=== PATIENT | female | born 1950 | race Caucasian/White ===

== ENCOUNTER → 2020-10-23 13:42 | Outpatient (BNVA) | payer MEDICARE, SELFPAY | PROVIDERS: PCP Internal Medicine; Visit Provider Specialist | DX: R20.0 Anesthesia of skin (principal); M25.531 Pain in right wrist; R29.898 Other symptoms and signs involving the musculoskeletal system | CPT/HCPCS: 95907; 95908 ==

== ENCOUNTER 2021-01-10 14:45 | Outpatient (CLI) | payer MEDICARE, SELFPAY ==
--- NOTE | 2021-01-10 15:21 | XR_ITS ---
WS: [id number] HAND RIGHT TECHNIQUE: 3 views of the right hand CLINICAL INFORMATION: PAIN AND SWELLING COMPARISON: None. FINDINGS: Normal metacarpals. Normal MCP joint. Metacarpal heads are normal in appearance. Mild narrowing PIP a nd DIP joints. No evidence of acute fracture or dislocation. Mild soft tissue edema. Radiocarpal joint: Mild narrowing Carpal bones: Mild degenerative arthritis first CMC and STT XR/XR hand RT min 3V* [id number] IMPRESSION: 1. Mild soft tissue edema. No acute fractures. 2. Mild degenerative arthritis as described above.
--- NOTE | 2021-01-10 15:22 | XR_ITS ---
WS: [id number] WRIST RIGHT TECHNIQUE: 3 views of the right wrist CLINICAL INFORMATION: PAIN AND SWELLING COMPARISON: None. FINDINGS: Distal radius and ulna are normal. Mild soft tissue edema about the wrist. Normal scaphoid and lunate . Normal scapholunate interval. No acute fractures. XR/XR wrist RT min 3V* [id number] IMPRESSION: Mild soft tissue edema. No acute fractures.
== END 2021-01-10 14:46 | disposition home or self-care (01) ==
PROVIDERS: PCP Internal Medicine; Visit Provider Internal Medicine
DX: M79.89 Other specified soft tissue disorders (principal); R60.0 Localized edema; M19.041 Primary osteoarthritis, right hand
CPT/HCPCS: 73110; 73130

== ENCOUNTER 2021-09-06 14:52 | Outpatient (CLI) | payer MEDICARE, SELFPAY ==
--- NOTE | 2021-09-06 15:08 | XR_ITS ---
WS: [id number] LEFT FOOT: 3 VIEW(S) TECHNIQUE: AP, oblique and lateral. HISTORY: FOOT PAIN, LEFT COMPARISON: None available. No acute fracture or dislocation. Normal tarsal/metatarsal alignment. No soft tissue abnormality or bone destruction. Small calcaneal spur. XR/XR foot LT min 3V* [id number] IMPRESSION: 1. No fracture or bone destruction. 2. Small calcaneal spur.
== END 2021-09-06 14:53 | disposition home or self-care (01) ==
PROVIDERS: PCP Internal Medicine; Visit Provider Nurse Practitioner Family
DX: M77.32 Calcaneal spur, left foot (principal)
CPT/HCPCS: 73630

== ENCOUNTER 2021-09-11 12:07 | Emergency (ER) | payer MEDICARE, SELFPAY ==
[2021-09-11] VITALS (10 sets, daily range): BP systolic 98–127; BP diastolic 45–102; PULSE 49–64; RESP 12–19; O2SAT 92–98; BMI 42.0
--- NOTE | 2021-09-11 12:10 | XRR_ITS ---
PROCEDURE INFORMATION: Exam: XR Chest Exam date and time: 09/11/2021 12:10 PM Age: 70 years old Clinical indication: Pain; Angina pectoris; Additional info: Chest pain TECHNIQUE: Imaging protocol: XR of the chest. Views: 1 view. COMPARISON: CR Abdomen 1 view [id number] 06/02/2017 4:02 PM FINDINGS: Lungs: Mildly hyperinflated lungs. No consolidation. Pleural spaces: Unremarkable. No pleural effusion. No pneumothorax. Heart/Mediastinum: Mild cardiomegaly. Bones/joints: Visualized osseous structures are intact. XR/XR chest 1V portable [id number] IMPRESSION: Mild cardiomegaly.
--- NOTE | 2021-09-11 12:10 | ECG_ITS ---
[facility] Test Date: 2021-09-11 Pat Name: Nelsy Valle Department: Room: Gender: Female Processing Associate: : 1950 Requested By: Caden Parrish Order Number: [id number] So MD: Jeffery Downs M.D. Measurements Intervals [place] Rate: 52 P: -19 NV: 150 QRS: -35 QRSD: 97 T: 133 QT: 390 QTc: 364 Interpretive Statements SINUS BRADYCARDIA LOW QRS VOLTAGE IN PRECORDIAL LEADS [QRS DEFLECTION < 1.0 mV IN CHEST LEADS] PATTERN CONSISTENT WITH PULMONARY DISEASE ST depressions in the high lateral leads with ST of ischemia INFERIOR MYOCARDIAL INFARCTION , POSSIBLY ACUTE [40+ ms Q WAVE AND/OR ST/T ABNORMALITY IN II/aVF] Diffuse nonspecific T wave changes ACUTE [place] No previous ECG available for comparison Electronically Signed On 09-11-2021 22:02:02 REAL ESTATE DIRECTOR by Jeffery Downs M.D. [id number]
--- NOTE | 2021-09-11 12:13 | ED_ITS ---
HPI - Chest Pain General: Chief Complaint: Chest Pain Stated Complaint: CP, FOOT DISCOLORATION Time Seen by Provider: 09/11/21 12:13 History of Present Illness: HPI narrative: Ms. Valle is a 70-year-old lady with history of COPD and hyperlipidemia who presents the emergency department due to chest pain. She was seen by Dr. Bunch this morning and referred to the emergency department for further evaluation. She reports being at her baseline health last night and does not have a history of chest pain. Earlier this morning she had chest pain which she describes as a gas type feeling of moderate intensity. Associated with mild nausea and vomiting. Some associated shortness of breath. Overall the course of symptoms has persisted. No known specific exacerbating relieving factors identified. Of note and recent history approximately 3 weeks ago she noticed discoloration of her left toes and increased pain. She presented to [place] and at that point was told that she has gout and started on colchicine. She endorses that that has made her st omach upset. Additionally she is on antibiotics for diverticulitis. Review of Systems General: Reports: 10 or more systems reviewed and unremarkable except in HPI and below Physical Exam Narrative: EXAM NARRATIVE: GENERAL/CONSTITUTIONAL -somewhat ill-appearing. Obese Eyes - PERRL, no conjunctival injection ENMT - Atraumatic external nose and ears. NECK - supple. trachea midline CARDIOVASCULAR - regular rate and rhythm. No significant peripheral edema. Unable to palpate DP or PT, discoloration with purpling of the left first through fifth toes. RESPIRATORY - clear to auscultation bilaterally. No retractions or accessory muscle use. ABDOMEN/GI - Nontender/Nondistended. MSK - Extremities without obvious deformity or tenderness to palpation SKIN - Warm, Dry NEURO - alert and appropriately oriented. Moves all extremities equally. Course ED course: - Patient was seen and evaluated by me at bedside - Patient placed on cardiac monitors, IV access obtained - Initial evaluation notable for exam as noted above. Based on initial EKG patient is STEMI activated. STEMI activation order set ordered. Cardiology Dr. Hirsch reviewed twelve-lead EKG and would like to see labs prior to decision regarding High School Coordinator. - Labs notable for leukocytosis, likely mild hemoconcentration. Metabolic panel without acute electrolyte abnormality, bicarb decreased, anion gap elevated. There is elevation of the AST of unclear etiology. CK and troponin markedly elevated - Upon obtaining results of troponin I again discussed the case with Dr. Hirsch. He came to evaluate the patient and recommedned treatment for NSTEMI with heparin drip. - Imaging notable for no acute finding on chest x-ray to explain patient's pain. Ultrasound arterial study reveals at least moderate peripheral arterial disease in the left leg and mild in the right - Upon serial reexamination after treatment the patient was similar - Based on patient history, evaluation, labs, and imaging as interpreted the most likely cause of the patient's condition is NSTEMI, peripheral arterial disease with evidence of tissue ischemia. - I discussed the results of ED evaluation with the patient. She expressed a desire to leave. I explained multiple times that I believe that medically this is a bad decision. The patient's primary motivation for wanting to leave is financial. I discussed that I would have case management and social work come and speak with her and potentially a plan could be established however she continues to express desire to leave. The patient is oriented to person, place, and time, has the capacity to make decisions regarding the medical care offered. The patient speaks coherently and exhibits no evidence of having an altered level of consciousness. They respond knowingly to questions about recommended treatment and alternate treatments including no further testing or treatment; p articipate in diagnostic and treatment decisions by means of rational thought processes; and understand the items of minimum basic medical treatment information with respect to that treatment (the nature and seriousness of the illness, the nature of the treatment, the probable degree and duration of any benefits and risks of any medical intervention that is being recommended, and the consequences of lack of treatment, and the nature, risks, and benefits of any reasonable alternatives). - Given the patient his high risk for various complications I will give her prescriptions despite her leaving AGAINST MEDICAL ADVICE. I will message case management to aid with outpatient follow-up. - The patient understands that she is welcome to return to the emergency department at any time for any reason. Vital Signs: Vital signs: Vital Signs Pulse Rate 64 09/11/21 14:59 Respiratory Rate 16 09/11/21 14:59 Blood Pressure 110/62 09/11/21 14:59 Pulse Oximetry 94 09/11/21 13:46 MDM - Chest Pain Medical Records: Attestation: I reviewed the patient's medical records. Lab Data: Attestation: I reviewed the patient's lab results. Labs: Lab Results 09/11/21 09/11/21 09/11/21 12:10 12:10 12:10 WBC RBC Hgb Hct MCV MCH MCHC RDW Plt Count MPV Neut % (Auto) Lymph % (Auto) Ceiba % (Auto) Eos % (Auto) Baso % (Auto) Neut # (Auto) Lymph # (Auto) Ceiba # (Auto) Eos # (Auto) Baso # (Auto) Nucleated RBC % (a uto) Nucleated RBCs # PT 13.20 SECONDS SEC ONDS (12.1-14.9) INR 0.97 (0.8-1.2) APTT 27.0 SECONDS SECO NDS (23.9-36.7) Sodium 139 mmol/L mmol/L (136-145) Potassium 4.5 mmol/L mmol/L (3.5-5.1) Chloride 102 mmol/L mmol/L (98-107) Carbon Dioxide 18 mmol/L L mmol/ L (22-29) Anion Gap 23.5 H (5-19) BUN 9 mg/dL mg/dL (8-23) Creatinine 0.8 mg/dL mg/dL (0.5-0.9) GFR Calculation Not Reportable Glucose 100 mg/dL mg/dL (65-115) Calculated Osmolal ity 287 mOsm/kg mOsm/ kg (285-295) Calcium 9.3 mg/dL mg/dL (8.5-10.5) Total Bilirubin 0.2 mg/dL mg/dL (0.15-1.2) AST 97 U/L H U/L (0-32) ALT 18 U/L U/L (0-33) Alkaline Phosphata se 89 IU/L IU/L (35-105) Creatine Kinase 1279 U/L H* U/L (26-192) CK-MB (CK-2) 158.5 ng/mL H ng/ mL (0-5.34) CK-MB (CK-2) Rel I ndex 12.3 % H % (0.0-10.4) Troponin T Baselin e 1160 ng/L H* ng/L (0-10) Total Protein 6.3 g/dL L g/dL (6.6-8.7) Albumin 4.0 g/dL g/dL (3.5-5.2) Globulin 2.3 g/dL g/dL (1.3-4.6) 09/11/21 12:25 WBC 16.6 10^3/uL H 10 ^3/uL (4.0-10.0) RBC 4.87 10^6/uL 10^6 /uL (4.1-5.3) Hgb 15.8 g/dL H g/dL (11.5-15.3) Hct 49.1 % H % (37.0-47.0) MCV 100.8 fl H fl (81-99) MCH 32.4 pg pg (28.0-34.0) MCHC 32.2 g/dL g/dL (30.0-36.0) RDW 13.2 % % (12.1-15.1) Plt Count 304 10^3/cmm 10^3 /cmm (130-400) MPV 9.5 fL fL (7.4-10.4) Neut % (Auto) 77.5 % % Lymph % (Auto) 15.4 % % Ceiba % (Auto) 6.2 % % Eos % (Auto) 0.4 % % Baso % (Auto) 0.2 % % Neut # (Auto) 12.85 10^3/uL H 1 0^3/uL (1.8-7.7) Lymph # (Auto) 2.6 10^3/uL 10^3/ uL (0.8-4.8) Ceiba # (Auto) 1.0 10^3/uL H 10^ 3/uL (0.2-0.9) Eos # (Auto) 0.1 10^3/uL 10^3/ uL (0.0-0.8) Baso # (Auto) 0.0 10^3/uL 10^3/ uL (0.0-0.1) Nucleated RBC % (a uto) 0 % % Nucleated RBCs # 0.0 /100WBC /100W BC PT INR APTT Sodium Potassium Chloride Carbon Dioxide Anion Gap BUN Creatinine GFR Calculation Glucose Calculated Osmolal ity Calcium Total Bilirubin AST ALT Alkaline Phosphata se Creatine Kinase CK-MB (CK-2) CK-MB (CK-2) Rel I ndex Troponin T Baselin e Total Protein Albumin Globulin EKG Data^: EKG 1: Attestation: I personally reviewed and interpreted this EKG as follows: EKG interpretation date: 09/11/21 EKG interpretation time: 12:09 Ischemic changes: acute STEMI Interpretation: Twelve-lead EKG shows a regular rhythm and rate of 52. DC interval 150, QRS duration 97, QTc 369. Left axis deviation. Interpretation: ST elevation in lead III and aVF with reciprocal changes in lead I and aVL. STEMI activation ordered. EKG 2: Attestation: I personally reviewed and interpreted this EKG as follows: EKG interpretation date: 09/11/21 EKG interpretation time: 13:05 Interpretation: Twelve-lead EKG shows a regular rhythm at a rate of 51. DC interval 141, QRS duration 92, QTc 396. Left axis deviation. Interpretation: Sinus rhythm. Bradycardia. Nonspecific ST segment abnormalities no longer meeting STEMI criteria. Critical Care Time Critical Care Time: Critical Care Time: Yes Total Critical Care Time: 35 Attestation: Due to a high probability of clinically significant, possibly life threatening deterioration, the patient required my highest level of attention and preparedness to intervene emergently and I personally spent this critical care time directly and personally managing the patient. This critical care time included obtaining a history; examining the patient; pulse oximetry; ordering and review of laboratory and imaging studies; arranging urgent treatment with development of a management plan; evaluation of patient's response to treatment; frequent reassessment; and, discussions with other providers as applicable. It was exclusive of separately billable procedures. Discharge Plan Discharge Patient Disposition: Left Against Medical Advice Clinical Impression: Chest pain, Acute non-ST elevation myocardial infarction (NSTEMI), Leukocytosis, Peripheral arterial disease, Arterial insufficiency of lower extremity, Elevated CK Condition: Stable Prescriptions: New aspirin 325 mg tablet,delayed release (DR/EC) 325 mg PO DAILY Qty: 30 RF: 0 Plavix 75 mg tablet 75 mg PO DAILY Qty: 30 RF: 0 nitroglycerin 0.4 mg tablet, sublingual 0.4 mg sublingual Q5M PRN (Reason: chest pain) Qty: 30 RF: 0 No Action diazepam [Valium] 5 mg tablet 5 mg PO BID PRN (Reason: Anxiety) RF: 0 cephalexin 500 mg capsule 500 mg PO TID RF: 0 Referrals: Minda Bunch MD [Primary Care Provider] - Discharge Diet: Usual diet Discharge Activity: Resume usual activity Patient Instructions: Heart Attack (DC), Peripheral Artery Disease (ED) Activity Restrictions/Additional Instructions: Thank you for visiting the emergency department. You were seen and evaluated f or chest pain. You were found to have a heart attack, evidence of muscle breakdown leading to elevated CK which can cause kidney damage or kidney failure, and peripheral arterial disease likely resulting in ischemia in your toes. You are choosing to leave AGAINST MEDICAL ADVICE. I believe that this is a bad medical decision. You are at increased risk of , permanent debility, renal failure, severe morbidity, gangrene, or other complications because you are not staying in the hospital. Please follow-up with your primary care provider. Return to the emergency department for any reason at any time that you are concerned about and feel needs emergency department evaluation. Leaving AGAINST MEDICAL ADVICE does not mean that you cannot return to the emergency department. Coding Level of Care Code ED Campaign Developer for Jayaln Cordova
--- NOTE | 2021-09-11 12:24 | USCV_ITS ---
Nelsy Valle Age: 70 Gender: F : 1950 Exam Date: 09/11/2021 13:14 Ordering Phys: Russell Boo MD Technologist: Taurus Montiel Exam Location: [facility] [place] Indication: LEFT TOES ISCHEMIA, BILATERAL COLD FEET Risk Factors: Previous Vascular Surgery: RIGHT LEFT BP: / BP: 112.0/ 47.00 0 Waveform Velocity (cm/s) Velocity (cm/s) Waveform Triphasic 157.3 Iliac Prox 62.7 Triphasic Triphasic 139.1 Iliac Mid 60.9 Triphasic Triphasic Iliac Distal Triphasic 135.8 70.5 Triphasic 87.0 LEATHER PRODUCTION MACHINE OPERATOR 57.8 Triphasic Biphasic 87.0 SFA Prox 36.7 Monophasic Biphasic 68.4 SFA Mid 30.8 Monophasic Biphasic 74.6 SFA Dist 23.0 Monophasic Biphasic 38.5 POP 17.1 Monophasic Biphasic 55.5 GRAPHIC DESIGN MANAGER 29.2 Monophasic Monophasic DPA 13.1 Monophasic 1.0 JEFFREY 0.7 FINDINGS Resting JEFFREY on the right side of 1.0 Diminished resting JEFFREY on the left side of 0.7 Abnormal artery Doppler waveforms in the left superficial femoral, popliteal and infrapopliteal vessels. CONCLUSIONS Patient has a history of at least moderate peripheral artery disease on the left side involving the femoral popliteal and infrapopliteal vessels. Normal resting JEFFREY with abnormal artery Doppler waveforms, suggestive of at least mild PAD on the right side No similar previous studies are available for comparison Dr Jeffery Downs MD [facility] (Electronically Signed) Final Date: 11 September 2021 16:12 S
[2021-09-11] MEDS: clopidogrel 300 mg Tablet 600 MG PO (12:28)
[2021-09-11] MEDS: sodium chloride 0.9% 1,000 ML 999 ML IV (12:28)
[2021-09-11] MEDS: heparin 5,000 unit/mL INJ 1 mL 4000 UNIT IVP (12:28)
[2021-09-11 12:40] LABS: INR 0.97 (0.8-1.2)
[2021-09-11 12:43] LABS: Alanine Aminotransferase 18 U/L (0-33); Alkaline Phosphatase 89 IU/L (35-105); Anion Gap 23.5 (5-19); Aspartate Amino Transferase 97 U/L (0-32); Blood Urea Nitrogen 9 mg/dL (8-23); Calcium 9.3 mg/dL (8.5-10.5); Carbon Dioxide 18 mmol/L (22-29); Chloride 102 mmol/L (98-107); Globulin 2.3 g/dL (1.3-4.6); Glucose 100 mg/dL (65-115); Osmolality Calculated 287 mOsm/kg (285-295); Potassium 4.5 mmol/L (3.5-5.1); Sodium 139 mmol/L (136-145); Total Bilirubin 0.2 mg/dL (0.15-1.2); Total Protein 6.3 g/dL (6.6-8.7)
[2021-09-11 12:48] LABS: Basophils % 0.2 %; Eosinophils # 0.1 10^3/uL (0.0-0.8); Eosinophils % 0.4 %; Hematocrit 49.1 % (37.0-47.0); Hemoglobin 15.8 g/dL (11.5-15.3); Lymphocytes # 2.6 10^3/uL (0.8-4.8); Lymphocytes % 15.4 %; Mean Corpuscular HGB Conc 32.2 g/dL (30.0-36.0); Mean Corpuscular Hemoglobin 32.4 pg (28.0-34.0); Mean Corpuscular Volume 100.8 fl (81-99); Mean Platelet Volume 9.5 fL (7.4-10.4); Monocytes % 6.2 %; Neutrophils # 12.85 10^3/uL (1.8-7.7); Neutrophils % 77.5 %; Nucleated Red Blood Cells % 0 %; Platelet Count 304 10^3/cmm (130-400); Red Blood Count 4.87 10^6/uL (4.1-5.3); Red Cell Distribution Width 13.2 % (12.1-15.1); White Blood Count 16.6 10^3/uL (4.0-10.0)
[2021-09-11] MEDS: fentaNYL 50 mcg/mL INJ 2mL IVP (12:49)
[2021-09-11 12:50] LABS: Troponin(5th) Baseline 1160 ng/L (0-10)
[2021-09-11 12:51] LABS: Creatine Phosphokinase 1279 U/L (26-192)
--- NOTE | 2021-09-11 12:53 | ECG_ITS ---
[facility] Test Date: 2021-09-11 Pat Name: Nelsy Valle Department: Room: Gender: Female Occupational Health And Safety Manager: : 1950 Requested By: Russell Boo Order Number: [id number] So MD: Jeffery Downs M.D. Measurements Intervals [place] Rate: 51 P: -16 [place]: 141 QRS: -36 QRSD: 92 T: -60 QT: 420 QTc: 387 Interpretive Statements SINUS BRADYCARDIA LEFT AXIS DEVIATION [QRS AXIS < -30] LOW QRS VOLTAGE IN PRECORDIAL LEADS [QRS DEFLECTION < 1.0 mV IN CHEST LEADS] POSSIBLE ANTERIOR MYOCARDIAL INFARCTION , OF INDETERMINATE AGE [30 ms Q WAVE IN V3/V4, OR R < 0.2 mV IN V4] POSSIBLE INFERIOR MYOCARDIAL INFARCTION , OF INDETERMINATE AGE [30 ms Q WAVE IN II/aVF] INTERPRETATION BASED ON A DEFAULT AGE OF 40 YEARS Compared to ECG 09/11/2021 12:09:12 Left-axis deviation now present Myocardial infarct finding still present Electronically Signed On 09-11-2021 22:02:43 MACHINE SKIVER by Jeffery Downs M.D. [id number] tiff
[2021-09-11 13:29] LABS: CKMB 158.5 ng/mL (0-5.34); CKMB Relative Index 12.3 % (0.0-10.4)
--- NOTE | 2021-09-11 21:29 | PM.CONSULT ---
Providers/Reason For Consult Consulting Physician/Specialty*: Cardiology Reason for Consult*: Non-ST elevation DE, critical limb ischemia Primary Care Provider: Minda Bunch MD History of Present Illness History of Present Illness Nelsy Valle is a 70 year old female past medical history significant for chronic tobacco abuse quit 3 years, history of diverticulitis, obesity, peripheral arterial disease presented with off-and-on chest pain for few days and consistent for the last few hours. She was noted to have old inferior wall myocardial infarction with lateral ST depression no prior EKG to compare. Upon presentation patient was treated as per ACS protocol she was noted to have more than 1100 troponin. She was also complaining of pain in the left foot with dusky blue discoloration of toes. She does not have palpable pulses in the left foot however it appears to be warm and not cold. I saw the patient in the ER. Since she is chest pain-free and because of the fact she has non-ST elevation DE it was advised that patient should get admitted for possible left heart cath/PCI if indicated in the morning until then we will treat her with medical regimen including anticoagulation antiplatelet and statin. She also need left foot to be addressed. According the patient she would like to go home and would not like to be treated. I have detailed discussion with the patient regarding all risk benefit and alternative for the treatment. Patient has been explained in detail that since she is going through myocardial infarction it can be detrimental as it can lead to further extension of myocardial infarction, arrhythmia and worse case scenario . Patient remained adamant she appeared to be competent and would not like to be treated. This discussion took place in the presence of family member by bedside which is her daughter. I have been informed by discussion with the patient to Dr. Oshea our ER physician who will also going to talk to her as well and try to persuade her to come into the hospital. Patient has been again advised in case of worsening of chest pain or not feeling well or getting worse she can call 911 and come to ER. She can also call my clinic and I can see her there as well. We will also offer her as an outpatient left heart cath. Review of Systems General: Reports: 10 or more systems reviewed and unremarkable except in HPI and below Meds/Allergies Home Medications and Allergies Home Medications Medication Instructions Recorded Confirmed Last Taken Type diazepam 5 mg tablet 5 mg PO BID PRN 10/23/20 09/11/2109/10/21 History aspirin 325 mg PO DAILY #30 tab 09/11/21 Unknown Rx cephalexin 500 mg PO TID 09/11/21 09/11/21 09/10/21 History clopidogrel [Plavix] 75 mg PO DAILY #30 tab 09/11/21 Unknown Rx nitroglycerin 0.4 mg SUBLINGUAL Q5M PRN #30 tab 09/11/21 Unknown Rx Allergies Allergy/AdvReac Type Severity Reaction Status Date / Time acetaminophen [From Vicodin] Allergy Severe difficulty Verified 10/23/20 14:31 breathing Beef Containing Products Allergy Severe hives, Verified 10/23/20 14:31 itching and difficulty breathing erythromycin base Allergy Severe Hives Verified 10/23/20 14:32 hydrocodone [From Vicodin] Allergy Severe difficulty Verified 10/23/20 14:31 breathing Penicillins Allergy Severe anaphylaxis Verified 10/23/20 14:31 and hives Vitals/I&O/Wt Last Vital Signs Pulse 64 09/11/21 14:59 Resp 16 09/11/21 14:59 BP 110/62 09/11/21 14:59 Pulse Ox 94 09/11/21 13:46 Weight last 48 hrs Weight 230 lb Physical Exam Narrative: EXAM NARRATIVE: GENERAL: Patient is alert, awake and oriented x3. NECK: No jugular vein distension. HEENT: No cyanosis. No icterus. No pallor. HEART: Regular S1 and S2. No murmur, rub or gallop. LUNGS: Clear to auscultate bilaterally. ABDOMEN: Soft, nontender and nondistended. Positive bowel sounds. No guarding, rebound or tenderness. CENTRAL NERVOUS SYSTEM: Grossly nonfocal. EXTREMITIES: Lower extremities without edema bilaterally. Pulses not palpable, dusky blackish left foot: Toes Data EKG^: EKG 2: I personally reviewed and interpreted this EKG as follows: My Interpretation: SINUS BRADYCARDIA LOW QRS VOLTAGE IN PRECORDIAL LEADS [QRS DEFLECTION < 1.0 mV IN CHEST LEADS] PATTERN CONSISTENT WITH PULMONARY DISEASE INFERIOR MYOCARDIAL INFARCTION , POSSIBLY ACUTE [40+ ms Q WAVE AND/OR ST/T ABNORMALITY IN II/aVF] A&P Assessment and plan (1) Acute non-ST elevation myocardial infarction (NSTEMI): As defined above patient has been offered admission which she declined. She understand the consequences and left AMA. We will be available if she come back she will be requiring optimal medical regimen to be started in the hospital followed by assessment of LV function and possible left heart cath/PCI if indicated. Status: Acute (2) Peripheral arterial disease: It appeared to me that patient has moderate to severe peripheral arterial disease. Risks stratification secondary prevention and assessment with CTA with runoff along with aspirin statin advised. Patient again was offered this treatment which she declined. She left AMA. Status: Acute Consult Attestations Medical Necessity Statement: Patient left AGAINST MEDICAL ADVICE Coding Level of Care Code Acute Art Coordinator for Jaylan Cordova Diagnoses Acute non-ST elevation myocardial infarction (NSTEMI) I21.4 Peripheral arterial disease I73.9
--- NOTE | 2021-09-13 14:39 | DCPLANNER ---
manager of change had message to schedule a follow up appointment for patient with [facility]. manager of change called [facility], spoke with Negra, gave clinic patients information. manager of change was told that patients information would be printed and reviewed. Clinic will call patient with appointment information.
--- NOTE | 2021-09-25 15:45 | DCPLANNER ---
Patient had a follow up appointment scheduled with 09.18.21 with [facility] - patient did not attend appointment.
== END 2021-09-11 15:00 | disposition left against medical advice (07) ==
PROVIDERS: Family Medicine; Emergency Provider Emergency Medicine; PCP Internal Medicine
DX: I21.4 Non-ST elevation (NSTEMI) myocardial infarction (principal); D72.829 Elevated white blood cell count, unspecified; I73.9 Peripheral vascular disease, unspecified; I77.1 Stricture of artery; R79.9 Abnormal finding of blood chemistry, unspecified; Z79.82 Long term (current) use of aspirin; Z79.02 Long term (current) use of antithrombotics/antiplatelets
CPT/HCPCS: 71045; 80053; 82550; 82553; 84484; 85025; 85610; 85730; 93005; 93925; 96361; 96374; 96375; 99284; J1644; J3010; J7030

== ENCOUNTER 2021-10-01 17:15 | Inpatient (IN) | payer MEDICARE, OTHER, SELFPAY ==
[2021-10-01 17:55] VITALS: PULSE 65; O2SAT 95
[2021-10-01 19:24] LABS: Basophils # 0.1 10^3/uL (0.0-0.1); Basophils % 0.7 %; Eosinophils # 0.2 10^3/uL (0.0-0.8); Eosinophils % 2.1 %; Hematocrit 49.6 % (37.0-47.0); Hemoglobin 15.8 g/dL (11.5-15.3); Lymphocytes # 2.6 10^3/uL (0.8-4.8); Lymphocytes % 31.7 %; Mean Corpuscular HGB Conc 31.9 g/dL (30.0-36.0); Mean Corpuscular Hemoglobin 31.8 pg (28.0-34.0); Mean Corpuscular Volume 99.8 fl (81-99); Mean Platelet Volume 9.7 fL (7.4-10.4); Monocytes # 0.6 10^3/uL (0.2-0.9); Monocytes % 7.4 %; Neutrophils # 4.73 10^3/uL (1.8-7.7); Neutrophils % 57.9 %; Nucleated Red Blood Cells % 0 %; Platelet Count 303 10^3/cmm (130-400); Red Blood Count 4.97 10^6/uL (4.1-5.3); White Blood Count 8.2 10^3/uL (4.0-10.0)
[2021-10-01 19:30] VITALS: RESP 17; O2SAT 94
[2021-10-01] MEDS: HYDROmorphone 1 mg/mL INJ 1 mL IVP (19:30)
[2021-10-01 19:37] LABS: INR 1.02 (0.8-1.2)
--- NOTE | 2021-10-01 20:00 | P.HP_ITS ---
Providers/Chief Complaint Admitting Physician: Elias Hirsch MD Primary Care Provider: Minda Bunch MD Chief Complaint: CHF History of Present Illness Nelsy Valle is a 71 year old female Nelsy past medical history significant for chronic tobacco abuse quit 3 years, history of diverticulitis, obesity, peripheral arterial disease presented to emergency room couple of weeks ago with non-ST elevation PR and critical limb ischemia of left leg. At that time patient was offered admission for both peripheral angiogram and left heart cath which she declined and left AMA. She ended up in the [facility] with worsening of heart failure. She was told that she is high risk for contrast- induced nephropathy heart failure stroke and bleeding. It is the reason she opted to be hospice. As an outpatient she was treated by Dr. Morales, she somewhat got better heart failure moody but continues to have left leg pain with worsening of left toe discoloration, she then decided not to stay on hospice and would like to do everything for her. Her family is in her full sport. She discussed it with Dr. Minda Morales who discussed the situation with me it is the reason I saw this patient in my clinic today. Patient says she is in a lot of pain that she has to hold her leg all day. Her left foot appeared to be cold dusky blue and possibly developing gangrene, she still can move it and has some sensation. Since patient never had angiogram and because of the fact she has recent non-ST elevation PR, she may need coronary angiogram first for risk stratification and may require intervention if she has significant coronary artery disease, patient is high risk for bleeding stroke renal failure due to underlying comorbidities however she is pretty functional therefore we will admit her to the hospital, I will tune her up with a plan to perform left heart cath and eddy pheral angiogram at the same time most likely tomorrow. Patient and her daughter by bedside are in agreement they understand all risk benefit and alternative for the procedure and would like to proceed with it. Medications/Allergies Home Medications Medication Instructions Recorded Confirmed Last Taken Type diazepam 5 mg tablet 5 mg PO BID PRN 10/23/20 10/02/21 09/30/21 21:00 History 5 clopidogrel [Plavix] 75 mg PO DAILY #30 tab 09/11/21 10/02/21 09/30/21 21:00 Rx fentanyl 12 mcg/hr transdermal 1 patch TRANSDERMAL Q72H 10/01/21 10/02/21 10/01/21 10:00 History patch Allergies Allergy/AdvReac Type Severity Reaction Status Date / Time acetaminophen [From Vicodin] Allergy Severe difficulty Verified 10/23/20 14:31 breathing Beef Containing Products Allergy Severe hives, Verified 10/23/20 14:31 itching and difficulty breathing erythromycin base Allergy Severe Hives Verified 10/23/20 14:32 hydrocodone [From Vicodin] Allergy Severe difficulty Verified 10/23/20 14:31 breathing Penicillins Allergy Severe anaphylaxis Verified 10/23/20 14:31 and hives Iodine and Iodide Containing Allergy Unknown Unknown Verified 10/01/21 13:21 Produc shellfish derived Allergy Unknown Unknown Verified 10/01/21 13:21 PFSH Acute PFSH: Medical History (Updated 10/01/21 @ 20:10 by Elias Hirsch MD) CHF (congestive heart failure) History of PR (myocardial infarction) Family History (Updated 10/01/21 @ 13:26 by Tatiana Remy RN) Sister Cancer Colorectal CA Social History (Updated 10/01/21 @ 13:26 by Tatiana Remy RN) Smoking and tobacco status: current every day smoker (<1/2 ppd ) cigarettes Packs smoked per day: 1 Years cigarettes smoked: 55 Vitals/I&O/Wt Last Vital Signs Pulse 65 10/01/21 17:55 Resp 17 10/01/21 19:30 Pulse Ox 94 10/01/21 19:30 Physical Exam Narrative: EXAM NARRATIVE: GENERAL: Patient is alert, awake and oriented x3. NECK: No jugular vein distension. HEENT: No cyanosis. No icterus. No pallor. HEART: Regular S1 and S2. No murmur, rub or gallop. LUNGS: Clear to auscultate bilaterally. ABDOMEN: Soft, nontender and nondistended. Positive bowel sounds. No guarding, rebound or tenderness. CENTRAL NERVOUS SYSTEM: Grossly nonfocal. EXTREMITIES: Lower extremities without edema bilaterally. Pulses not palpable in the lower extremities, both dorsalis pedis and posterior tibial. Left foot cold with dusky forefeet and toes. motor and sensory are intact. Data : 10/01/21 19:10 10/01/21 19:10 A&P Assessment and plan (1) Critical limb ischemia of left lower extremity: Will admit the patient to the hospital will perform pain control she was been on anticoagulation we will keep her foot warm most likely peripheral angiogram tomorrow if creatinine is in acceptable limit Status: Acute (2) History of PR (myocardial infarction): Patient has recent non-ST elevation myocardial infarction after that she developed congestive heart failure. For risk stratification and for therapeutic purpose she required left heart cath will continue to optimize medicine. She is a candidate for DAPT she would like to have left heart cath/PCI. Status: Acute (3) CHF (congestive heart failure): New onset of heart failure currently well compensated continue current regimen. Left heart cath in the morning Status: Acute Qualifiers: Heart failure chronicity: acute on chronic Heart failure type: systolic Qualified Code(s): I50.23 - Acute on chronic systolic (congestive) heart failure Attestations Medical Necessity Statement*: Patient require admission to the hospital. She will be inpatient I am expecting her stay to cross more than 2 midnights Coding Level of Care Code New Pt Acute Crawler Dragline Operator for Jaylan Cordova Patient Type New History Comprehensive Exam Comprehensive Medical Decision Making High Complexity Diagnoses Critical limb ischemia of left lower extremity I70.222 History of PR (myocardial infarction) I25.2 CHF (congestive heart failure) I50.23 Heart failure chronicity: acute on chronic Heart failure type: systolic
[2021-10-01 20:04] LABS: Anion Gap 14.9 (5-19); Blood Urea Nitrogen 5 mg/dL (8-23); Calcium 9.3 mg/dL (8.5-10.5); Carbon Dioxide 26 mmol/L (22-29); Chloride 101 mmol/L (98-107); Glucose 100 mg/dL (65-115); Osmolality Calculated 283 mOsm/kg (285-295); Potassium 3.9 mmol/L (3.5-5.1); Sodium 138 mmol/L (136-145)
[2021-10-01 23:22] VITALS: BP 109/78; PULSE 66; RESP 13; TEMP 36.6; O2SAT 94
[2021-10-02] VITALS (15 sets, daily range): BP systolic 101–129; BP diastolic 63–90; PULSE 60–88; RESP 10–25; TEMP 35.8–36.6; O2SAT 93–98
[2021-10-02] MEDS: HYDROmorphone 1 mg/mL INJ 1 mL IVP ×2 (04:20→12:20)
[2021-10-02] MEDS: ondansetron 2 mg/ML SDV 2 mL 4 MG IVP (04:23)
[2021-10-02] MEDS: sodium chloride 0.9% 1,000 ML 50 ML IV (05:44)
--- NOTE | 2021-10-02 05:45 | PC.NURSE ---
Patient consent signed for catherization and angioplasty. Fluids infusing at 50 hour. Patient received pain medication at approximately 5am for left leg pain. Patient was npo after midnight. Will continue to monitor.
--- NOTE | 2021-10-02 06:03 | XACV_ITS ---
Exam Room: 2 Ht: 157 cm Wt: 100 kg BSA: 2.14 m2 Gender: Female : 1950 Any Known Allergies: Other Exam Priority: Routine Procedure(s): Procedure Description: Diagnostic procedure Procedure Description: PCI procedure Procedure Description: Drug Eluting Coronary Stent Procedure Description: PTCA Procedure Description: Peripheral Cath Diagnostic Procedure Procedure Description: Abdominal aortic angiography Procedure Description: Iliac arterial aortic angiography Procedure Description: Lower extremities' angiography Procedure Description: Peripheral vascular Intervention Procedure Description: PV Balloon Procedure Description: PV Stent Procedure Description: Coronary Angiography Joycelyn GERMAN; Diagnostic Cath Status: Urgent Diagnostic Findings * Left Main has no disease. * Left Anterior Descending has no disease. * Circumflex has no disease. * Proximal Right Coronary Artery: moderate 50% stenosis, JAMEE: 3 flow. * Mid Right Coronary Artery to Distal Right Coronary Artery: total occlusion, JAMEE: 0 flow. * Distal Right Coronary Artery: minimal 30% stenosis, JAMEE: 3 flow. * Ramus: severe 90% stenosis, JAMEE: 0 flow. * Third Obtuse Marginal Branch Segment: moderate 50% stenosis, JAMEE: 3 flow. * Coronary angiography shows right dominance. PCI Status: Urgent PCI Indication: NSTE - ACS Interventional Findings * Mid Right Coronary Artery to Distal Right Coronary Artery: 100% stenosis treated with a Balloon, MDT R VAISHALI 2.5X22 CAT, and MDT R VAISHALI 2.75X12 CAT. 0% residual stenosis, JAMEE: 3 flow. * Ramus: 90% stenosis treated with a AB TREK 2.50X25 RX BALLOON, MDT R VAISHALI 2.75X22 CAT, and MDT NC EUPHORA RX [id number] BALLOON. 0% residual stenosis, JAMEE: 3 flow. Lower Extremity Diagnostic Findings Peripheral angiogram: Bilateral renal artery no significant stenosis. Distal abdominal aorta has diffuse luminal irregularity with atherosclerosis without significant stenosis or aneurysm. And right common femoral artery has 40 to 50% ostial narrowing. Left common iliac artery has luminal irregularity. Left external iliac artery has significant proximal to mid stenosis. Left common femoral artery has luminal irregularity. Left SFA has high-grade mid short stenosis. Left SFA has luminal regularities. Left tibioperoneal trunk has luminal irregularity. Left anterior tibial vessel is occluded in the proximal to distal segment. Left peroneal and posterior tibial artery has luminal irregularity in the proximal to distal segment. The left distal peroneal artery has multiple stenosis in the very distal segment in the dorsum of the foot. Right external iliac right common femoral, right profundofemoral, right SFA has luminal irregularity. Right tibioperoneal trunk has luminal irregularity. Posterior tibial anterior tibial and peroneal artery on the right side is not well visualized due to insufficient injection of the contrast. Indication for procedure: Patient presented with non-ST elevation VA and limb threatening ischemia of the left foot with bluish discoloration and pain at rest. It is the reason both left heart cath and peripheral angiogram/angioplasty was performed. . Lower Extremity Interventional Findings Peripheral intervention: Through right common femoral artery approach using glide wire with the help of long destination sheath we were able to cross through left external iliac and left mid SFA stenosis. Balloon angioplasty of mid SFA and left external iliac was performed. Gradient across the left external iliac was still present more than 40 to 50 mmHg therefore it was treated with covered stent. Left anterior tibial was then crossed with the help of seeker and is command wire. Balloon angioplasty was performed. We were able to open up the vessel from proximal to mid after that it remained closed. Small perforation was observed in the left anterior tibial vessel. Since we had good two-vessel runoff noted all the way into the left foot and because of the fact we have good result in the left external iliac SFA we concluded the procedure with good two-vessel runoff all the way to the left foot.. Conclusions There is total occlusion coronary artery disease with one vessel disease. Mid Right Coronary Artery to Distal Right Coronary Artery was treated with a Balloon, Drug Eluting Stent, and Drug Eluting Stent. Ramus was treated with a Balloon, Drug Eluting Stent, and Balloon. Recommendations 1-Return to inpatient for close monitoring and routine cath care 2-Risk factor modification for secondary prevention 3-Statin and aspirin 81 mg life--long, if tolerated 4-Patient was pre-loaded with 600 mg of Plavix, continue Plavix 75mg p.o. daily for at least one year. We will assess at the end of one year again to continue if further or not 5-Continue optimal medical management 6-Follow up with Dr. Hirsch in four weeks and your primary care in 10 days. Pressures Phase:Rest AO : 155 / 81 ( 101 ) @ 5:48:00 AM 152 / 72 ( 103 ) @ 6:05:00 AM 120 / 51 ( 82 ) @ 6:12:00 AM 161 / 85 ( 116 ) @ 6:28:00 AM 135 / 79 ( 105 ) @ 6:55:00 AM 149 / 76 ( 104 ) @ 7:01:00 AM 111 / 60 ( 82 ) @ 7:22:00 AM 114 / 65 ( 87 ) @ 7:35:00 AM 110 / 66 ( 84 ) @ 7:54:00 AM 118 / 66 ( 89 ) @ 8:05:00 AM 137 / 63 ( 93 ) @ 8:06:00 AM 118 / 63 ( 86 ) @ 8:15:00 AM 130 / 59 ( 85 ) @ 8:38:00 AM Hemodynamic Data Phase:Rest AO : 155.0 / 81.0 ( 101.0 ) @ 5:48:00 AM 152.0 / 72.0 ( 103.0 ) @ 6:05:00 AM 120.0 / 51.0 ( 82.0 ) @ 6:12:00 AM 161.0 / 85.0 ( 116.0 ) @ 6:28:00 AM 135.0 / 79.0 ( 105.0 ) @ 6:55:00 AM 149.0 / 76.0 ( 104.0 ) @ 7:01:00 AM 111.0 / 60.0 ( 82.0 ) @ 7:22:00 AM 114.0 / 65.0 ( 87.0 ) @ 7:35:00 AM 110.0 / 66.0 ( 84.0 ) @ 7:54:00 AM 118.0 / 66.0 ( 89.0 ) @ 8:05:00 AM 137.0 / 63.0 ( 93.0 ) @ 8:06:00 AM 118.0 / 63.0 ( 86.0 ) @ 8:15:00 AM 130.0 / 59.0 ( 85.0 ) @ 8:38:00 AM Clinical Evaluation EBL: 5mL-10mL Procedural Details Procedure Consent Obtained. Pre-Procedure Time Out. Identified patient by full name and date of as verbalized by the patient/guarantor. Does the consent match the physician's order: Yes. Accurate & Complete Informed Consent: Yes. Inpatient/Outpatient History & Physical on Chart: Yes. If H&P is completed, is and addenduem needed: N/A. Visualize and Verify Site with Patient/Guarantor: N/A. Relevant Radiology Images available: Yes. The risks, benefits, and alternatives of sedation and/or procedure were discussed by physician. The patient agrees to continue. Procedure started. [facility] Clinical Fraility Score: 4: Vulnerable. Public Health Social Worker Indications: New Onset Angina. Chest Pain Symptom Assessment: Typical Angina Symptoms. Cardiovascular Instability: No. Correct patient, site and procedure confirmed by cath team. PERRLA. 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 Lungs clear x 5 lobes. IV Site on Arrival: 20 gauge in the right anticubital. IV Fluids: 0.9% NaCl at KVO. 100 mL infused prior to label rewinder. Pre Procedural Pulses: left dorsalis pedis was Absent. Pre Procedural Pulses: left posterior tibial was Absent. Pre Procedural Pulses: bilateral radial was 2+. Oxygen started at 2liters/min via nasal canula. bilateral groins was prepped with chloroprep then draped in the usual sterile fashion. Physician notified. Baseline sample Acquired. HR: 54 BPM. Equipment: 6F - Femoral. Cardiac Cath Pack. ACIST Manifold Kit Model BT 2000. Heparinized Saline (2 units/mL), 1000 mL bag. Kit, Micropuncture. Physician arrived. Physician scrubbed in. Immediate Pre-Procedure Time Out. Correct Patient: Yes; Correct Procedure: Yes; Correct Site: Yes; Correct Patient Position: Yes; Correct Supplies: Yes; Dried Flammable Prep: Yes; Blood Products Available: N/A. Lidocaine 1% infiltrated to the right groin. Arterial access obtained with micropuncture set. A 5 kyrgyz JL4 catheter in over wire. Pre Procedural Pulses: right dorsalis pedis was Doppled. Pre Procedural Pulses: right posterior tibial was Doppled. Multiple views taken of left coronary artery. A 5 kyrgyz JR4 catheter in over wire. Catheter removed over the standard wire. A 6 kyrgyz 3DRC catheter in over wire. Multiple views taken of right coronary artery. Catheter removed over the standard wire. Diagnostic complete, starting intervention. 6 kyrgyz XB 3 guide catheter was inserted over the wire. ACT drawn. Results 248 seconds. Therapeutic limits - pre-heparin administration 90-150 seconds and monitoring heparin during a vascular procedure >250 seconds. Patient's family updated by Merritt Tijerina RN. [employer] guidewire was advanced through the guide catheter to lesion in the Ramus. Inflation number : 1 A AB TREK 2.50X25 RX BALLOON was prepped and advanced across the Ramus , then inflated to 12 WANDA for 0:41 seconds. Balloon out. Results checked. Inflation Number : 2 A LIANG Bernal VAISHALI 2.75X22 CAT -Lot Number# [id number] was prepped and advanced across the Ramus. The stent was deployed at 12 WANDA for 0:28 seconds. Exp 2024-01-31. Stent balloon out over wire. Inflation number : 3 A LIANG MANLEY EUPHORA RX [id number] BALLOON was prepped and advanced across the Ramus , then inflated to 12 WANDA for 0:28 seconds. Inflation number: 4 The MDT NC EUPHORA RX [id number] BALLOON was reinflated across the Ramus, to 10 WANDA for 0:15 seconds. Balloon out. Results checked. Wire out. Guide catheter out. 6 kyrgyz 3DRC guide catheter was inserted over the wire. ACT drawn. Results 242 seconds. Therapeutic limits - pre-heparin administration 90-150 seconds and monitoring heparin during a vascular procedure >250 seconds. Runthrough guidewire was advanced through the guide catheter to lesion in the prox RCA. 2.75 x 12 NC Balloon inserted and unable to cross, removed. Guideliner inserted OTW to the RCA. Inflation number : 1 A AB MINI TREK 2.00X12 RX BALLOON was prepped and advanced across the Dist RCA , then inflated to 14 WANDA for 0:15 seconds. Inflation number: 2 The AB MINI TREK 2.00X12 RX BALLOON was reinflated across the Dist RCA, to 14 WANDA for 0:09 seconds. Inflation number: 3 The AB MINI TREK 2.00X12 RX BALLOON was reinflated across the Dist RCA, to 14 WANDA for 0:12 seconds. Inflation number: 1 The AB MINI TREK 2.00X12 RX BALLOON was reinflated across the Mid RCA, to 16 WANDA for 0:11 seconds. Inflation number: 2 The AB MINI TREK 2.00X12 RX BALLOON was reinflated across the Mid RCA, to 16 WANDA for 0:06 seconds. Inflation number: 3 The AB MINI TREK 2.00X12 RX BALLOON was reinflated across the Mid RCA, to 18 WANDA for 0:08 seconds. Balloon out. Results checked. Inflation Number : 4 A MDT R VAISHALI 2.5X22 CAT -Lot Number# [id number] was prepped and advanced across the Mid RCA. The stent was deployed at 14 WANDA for 0:24 seconds. Exp 2022-07-22. Inflation number: 5 The stent balloon was then re-inflated across the Mid RCA to 0 WANDA for 0:12 seconds. Stent balloon out over wire. Inflation Number : 6 A MDT R VAISHALI 2.75X12 CAT -Lot Number# [id number] was prepped and advanced across the Mid RCA. The stent was deployed at 14 WANDA for 0:22 seconds. Exp. 2024-05-29. Inflation number: 7 The stent balloon was then re-inflated across the Mid RCA to 14 WANDA for 0:09 seconds. Stent balloon out over wire. Results checked. Wire out. Guideliner out. Guide catheter out. A 5 kyrgyz Angled Pig catheter in over wire. Coronary intervention complete, starting diagnostic peripheral angiogram. Patient's family updated by Merritt Tijerina RN. Side port of sheath attached to Normal Saline flush at KVO to maintain patency. Abdominal aortogram performed in AP @ 10 mL/sec for a total of 30 mL. 360cm 0.035 Stiff Angled Glidewire in through the pigtail catheter. Pigtail Catheter removed over the glide wire. A 5F RIM catheter in over the glidewire. Glidewire advanced to the PT in the left lower extremity. RIM Catheter removed over the glide wire. Sheath upsized to a 6 Fr. Left external iliac selected and arteriogram with runoff performed @ 10 mL/sec for a total of 30 mL. Inflation number : 1 A AB ARMADA 35 OTW [id number] was prepped and advanced across the Superficial Femoral, Left , then inflated to 8 WANDA for 2:11 seconds. Balloon out over wire. ACT drawn. Results 236 seconds. Therapeutic limits - pre-heparin administration 90-150 seconds and monitoring heparin during a vascular procedure >250 seconds. Support catheter positioned in the posterior tibial to better visualize the distal vessels. Glidewire out. Hand injection of the TP trunk performed through the seeker. Hand injection of the TP trunk performed through the seeker. Hand injection of the TP trunk performed through the seeker. 300 cm 0.014 Command guidewire in through the seeker and advanced past the lesion in the Anterior Tibial. Seeker support catheter out over the Command guidewire. Inflation number : 1 A AB ARMADA 14 OTW [id number] was prepped and advanced across the Anterior Tibial, Left , then inflated to 6 WANDA for 2:24 seconds. Seeker support catheter in over the Command guidewire and advanced to the AT. Command wire out. Hand injection of the AT performed through the seeker. Seeker support catheter advanced to the TP trunk. Hand injection of the TP trunk performed through the seeker in DSA. Hand injection of the TP trunk performed through the seeker in DSA. Glidewire inserted through the Seeker Support Catheter and advanced to the AT. Glidewire out. Hand injection of the distal AT performed through the seeker. Glidewire in and advanced to the SFA, seeker out. Left common iliac selected and arteriogram with runoff performed @ 4 mL/sec for a total of 6 mL. Flexor sheath pulled back into the left common iliac to perform gradiant measurements. Inflation number : 1 A AB ARMADA 35 OTW [id number] was prepped and advanced across the External Iliac, Left , then inflated to 8 WANDA for 1:15 seconds. Inflation number: 2 The AB ARMADA 35 OTW [id number] was reinflated across the External Iliac, Left, to 8 WANDA for 1:18 seconds. Inflation number : 3 A AB ARMADA 35 OTW [id number] was prepped and advanced across the External Iliac, Left , then inflated to 8 WANDA for 1:10 seconds. Balloon out. Left common iliac selected and arteriogram with runoff performed @ 10 mL/sec for a total of 10 mL. Sheath upsized to a 7 Fr. Inflation number: 4 A [employer] Balloon Expandable Vascular Covered Stent 8mm x 58mm x 135cm was inflated and deployed at 8 WANDA for 1:30 seconds. Stent balloon out. Left external iliac selected and arteriogram with runoff performed @ 10 mL/sec for a total of 30 mL. Sheath exchanged for a short 7fr sheath. Sheath injected in Right common femoral artery and runoff performed at 10 for 30. Lidocaine 1% infiltrated to the right groin. Perclose to the right femoral failed, 7fr sheath reinserted. Sheath(s) sutured into position with 2-0 silk and sterile 4x4's and Op-site applied over the site. No oozing or signs and symptoms of hematoma noted. Arterial sheath flushed and connected to tranducer and pressure bag with heparinized saline. PERRLA. 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 No VTE prophylaxis required. Medication's Wasted: Heparin = 4000 mL. Medication's Wasted: Nitro = 49.6 mg. Medication's Wasted: Lidocaine 1% = 10 mL. Total IV fluids: 400 mL. A Suture was successful obtaining hemostatsis at the Right Femoral artery insertion site. Post-op diagnosis: Balloon angioplasty of the Ramus, Distal RCA, Mid RCA. Angioplasty of the Left SFA, Left AT, Left External Iliac with drug coated stenting of the left External Iliac. Complications: none. Estimated blood loss: 5mL-10mL. Responsiveness - Normal response to verbal stimuli; alert and oriented, PERRLA. Airway - Unaffected, no intervention required; spontaneous ventilation. Circulation: W/N/L, pulses unchanged. Nausea/Vomiting: No. Post Procedure: right dorsalis pedis pulse Doppled. Post Procedure: right posterior tibial pulse Doppled. Post Procedure: left posterior tibial pulse Doppled. Post Procedure: left dorsalis pedis pulse Doppled. Procedure completed. Patient transferred by bed to 1st floor. Vital chart was stopped. Access Site Site: Right Femoral artery Sheath Size: 6 Fr Hemostasis Method: Suture Hemostasis Success: Successful Procedure Medications Start: 7:35 AM Stop: 7:35 AM Medication: Solu-Medrol (methylprednisolone) Amount: 125 mg Route: I.V. Start: 7:35 AM Stop: 7:35 AM Medication: Benadryl Amount: 50 mg Route: I.V. Start: 7:35 AM Stop: 7:35 AM Medication: Versed Amount: 1 mg Route: I.V. Start: 7:35 AM Stop: 7:35 AM Medication: Fentanyl Amount: 50 mcg Route: I.V. Start: 7:39 AM Stop: 7:39 AM Medication: Versed Amount: 1 mg Route: I.V. Start: 7:59 AM Stop: 7:59 AM Medication: Heparin Amount: 9000 units Route: I.V. Start: 8:05 AM Stop: 8:05 AM Medication: Aggrastat 12.5 mg/250 mL Amount: 50 ml Route: I.V. bolus Start: 8:05 AM Stop: 8:05 AM Medication: Aggrastat 12.5 mg/250 mL Amount: 18 ml/hr Route: I.V. drip Start: 8:15 AM Stop: 8:15 AM Medication: Versed Amount: 1 mg Route: I.V. Start: 8:29 AM Stop: 8:29 AM Medication: Heparin Amount: 2000 units Route: I.V. Start: 8:34 AM Stop: 8:34 AM Medication: Heparin Amount: 2000 units Route: I.V. Start: 8:49 AM Stop: 8:49 AM Medication: Versed Amount: 1 mg Route: I.V. Start: 8:50 AM Stop: 8:50 AM Medication: Fentanyl Amount: 25 mcg Route: I.V. Start: 8:56 AM Stop: 8:56 AM Medication: Nitrogylcerin Amount: 400 mcg Route: I.C. Start: 9:17 AM Stop: 9:17 AM Medication: Versed Amount: 1 mg Route: I.V. Start: 9:25 AM Stop: 9:25 AM Medication: Fentanyl Amount: 25 mcg Route: I.V. Start: 9:32 AM Stop: 9:32 AM Medication: Heparin Amount: 1000 units Route: I.V. Start: 9:55 AM Stop: 9:55 AM Medication: Versed Amount: 1 mg Route: I.V. Start: 10:01 AM Stop: 10:01 AM Medication: Fentanyl Amount: 50 mcg Route: I.V. Start: 10:26 AM Stop: 10:26 AM Medication: Fentanyl Amount: 50 mcg Route: I.V. Start: 10:55 AM Stop: 10:55 AM Medication: Plavix Amount: 300 mg Route: P.O. I, the attending physician, have reviewed and verified all procedure medications. Yes, all medications given per verbal order History/Risk Factors Hypertension: No Dyslipidemia: No Peripheral Arterial Disease (PAD): Yes Myocardial Infarction (VA): Yes Obesity: Yes Renal Disease: No Tobacco Use: Current/Recent(w/in 1 year) Prior Interventions PCI: No CABG: No Valve Surgery: No Report Signatures Finalized by Elias Hirsch MD on 10/15/2021 08:36 PM
--- NOTE | 2021-10-02 06:14 | PC.NURSE ---
Shift Note Frequent safety and comfort rounds continue. Orders and/or nursing care completed as indicated. Patient monitored for response to intervention and treatment(s). Education provided includes what to expect for her cath procedure and peripheral angiogram. Patient and/or bilingual call center representative verbalizes understanding. Will continue to monitor.
--- NOTE | 2021-10-02 07:00 | USCV_ITS ---
Leonard Nelsy Age: 71 Gender: F : 1950 Exam Date: 10/02/2021 06:13 Ordering Phys: Elias Hirsch MD ([email or web address]) Technologist: Marie Gar Exam Location: [facility] [place] Indication: NSTEMI, CHF BP: 127 / 68 HR: 60 Rhythm: Sinus Technical Quality: Technically difficult study MEASUREMENTS (Male / Female) Normal Values 2D ECHO LV Diastolic Diameter PLAX 4.2 cm 4.2 - 5.9 / 3.9 - 5.3 cm LV Systolic Diameter PLAX 2.6 cm IVS Diastolic Thickness 1.2 cm 0.6 - 1.0 / 0.6 - 0.9 cm IVS Systolic Thickness 2.0 cm LVPW Diastolic Thickness 1.2 cm 0.6 - 1.0 / 0.6 - 0.9 cm LVPW Systolic Thickness 1.8 cm LVOT Diameter 2.0 cm LV Ejection Fraction 2D Teich 70.5 % LV Ejection Fraction MOD 2C 63.1 % LV Ejection Fraction 2C AL 62.4 % LA Diameter 2.6 cm LA Width 2.6 cm LA Height 4.5 cm RA Width 2.6 cm RA Height 3.8 cm Aorta at Sinotubular Diameter 2.4 cm M-MODE Aortic Annulus Diameter 2.7 cm LA Ao Ratio MM 1.1 MV E Point Septal Separation 0.6 cm DOPPLER AV Peak Velocity 141.0 cm/s LVOT Peak Velocity 58.0 cm/s AV Area Cont Eq vti 1.4 cm squared AV Area Cont Eq pk 1.3 cm squared MV Peak Velocity 113.0 cm/s MV Area PHT 3.9 cm squared Mitral E to A Ratio 0.6 MV E' Velocity 33.0 cm/s Mitral E to MV E' Ratio 9.6 Mitral E to LV E' Lateral Ratio 9.3 Mitral E to LV E' Septal Ratio 9.9 TR Peak Velocity 246.3 cm/s TR Peak Gradient 24.3 mmHg TR Mean Velocity 207.2 cm/s TR Mean Gradient 17.5 mmHg TR Velocity Time Integral 82.9 cm TV Peak E Velocity 47.0 cm/s PV Peak Velocity 89.0 cm/s RV Acceleration Time 0.1 s RV Ejection Time 0.3 s RV AcT/ET 0.3 FINDINGS Left Ventricle Normal left ventricular cavity size. Normal left ventricular systolic function. No regional wall motion abnormalities. Left ventricular ejection fraction is estimated at 65 %. Grade I/IV diastolic dysfunction (abnormal relaxation filling pattern), normal to mildly elevated filling pressures. Right Ventricle The right ventricle is normal in size and function. RVSP could not be calculated due to incomplete tricuspid regurgitation velocity profile. Right Atrium The right atrium is normal in size. Left Atrium The left atrium is normal in size. Mitral Valve Structurally normal mitral valve without significant stenosis or prolapse. There is no mitral regurgitation. Aortic Valve Moderate aortic valve calcification. No aortic valve stenosis. No aortic valve regurgitation. Tricuspid Valve Structurally normal tricuspid valve without significant stenosis or regurgitation. Pulmonic Valve Structurally normal pulmonic valve without significant stenosis. There is no pulmonic regurgitation. Pericardium Normal pericardium without effusion. Aorta Normal ascending aorta dimension. CONCLUSIONS 1-Normal left ventricular cavity size. Normal left ventricular systolic function. No regional wall motion abnormalities. Left ventricular ejection fraction is estimated at 65 %. Grade I/IV diastolic dysfunction (abnormal relaxation filling pattern), normal to mildly elevated filling pressures. 2-No significant valve abnormalities. 3-There is no pericardial effusion. 4-Right atrial pressure is around 5 mm of mercury. 5-There are no prior echocardiogram studies to compare. Elias Hirsch MD (Electronically Signed) Final Date: 02 October 2021 18:42 S
[2021-10-02] MEDS: perflutren protein-a microsphr 0.22 mg/mL SDV 3 mL IV (07:07)
--- NOTE | 2021-10-02 08:49 | PC.NURSE ---
to cardiac dental laboratory assistant at 0710.
--- NOTE | 2021-10-02 11:06 | P.HPUD_ITS ---
Surgery/Procedure H&P Update DATE OF PROCEDURE: October 02, 2021 DATE H&P PERFORMED: 10/01/21 H&P UPDATE INFORMATION: I have reviewed H&P completed within last 30 days and I have examined patient prior to procedure PREOP DIAGNOSIS: Critical limb ischemia/heart failure PATIENT REASSESSED PRIOR TO SEDATION, WITH NO CHANGE NOTED: Yes PHYSICAL EXAM: alert, oriented x 3 and clear to auscultation bilaterally AIRWAY EVAL/ANESTHESIA PLAN: ASA II and Risks, benefits & alternatives of sedation and/or procedure discussed ADDITIONAL INFORMATION: All risk benefits and alternative for the procedure including stroke major minor bleed contrast-induced nephropathy temporary permanent dialysis major minor vascular surgery urgent emergent CABG were e xplained in detail to the patient and daughter by bedside. They are all in agreement. We will proceed with it. She is a candidate for DAPT
--- NOTE | 2021-10-02 11:57 | PC.NURSE ---
patient reporting 10/10 pain in foot notified Dr bo of patients pain instructions to resume hydromorphone 1mg monitor respiratory status
[2021-10-02] MEDS: aspirin 81 mg EC Tablet PO (12:33)
[2021-10-02] MEDS: sodium chloride 0.9% 1,000 ML 100 ML IV ×2 (12:34→18:05)
[2021-10-02 13:36] LABS: Partial Thromboplastin Time 63.6 SECONDS (23.9-36.7)
--- NOTE | 2021-10-02 17:50 | PM.PN ---
Subjective Subjective: Interval history: Patient underwent left heart cath noted to have occluded mid to distal RCA with possibly was a culprit and high-grade lesion of proximal moderate to large size ramus intermedius. Both were treated with drug-eluting stents 1 in ramus and 2 in RCA. Excellent angiographic result was achieved. Peripheral angiogram was performed for critical limb ischemia of left leg and gangrenous toes, she was noted to have high-grade lesion of her external iliac mid SFA and chronically occluded left anterior tibial artery. Anterior tibial artery was treated with balloon angioplasty with reasonable good result distally it is felt through peroneal vessel mid SFA was treated with balloon angioplasty while left external iliac vessel was treated with balloon angioplasty followed by covered stent. Excellent angiographic result with good pulses were achieved in the left foot at the end of the case patient has palpable anterior and posterior tibial pulse left foot appear to be warm and started showing good color. Vitals/I&O/Wt Last Vital Signs Temp 96.6 F L 10/02/21 15:59 Pulse 88 10/02/21 15:59 Resp 20 H 10/02/21 15:59 BP 129/90 10/02/21 15:59 Pulse Ox 94 10/02/21 15:59 10/02/21 10/02/21 10/02/21 06:59 14:59 22:59 Intake Total 0 / 100 Balance 0 / 100 Weight last 48 hrs Weight 220 lb Physical Exam Narrative: EXAM NARRATIVE: GENERAL: Patient is alert, awake and oriented x3. NECK: No jugular vein distension. HEENT: No cyanosis. No icterus. No pallor. HEART: Regular S1 and S2. No murmur, rub or gallop. LUNGS: Clear to auscultate bilaterally. ABDOMEN: Soft, nontender and nondistended. Positive bowel sounds. No guarding, rebound or tenderness. CENTRAL NERVOUS SYSTEM: Grossly nonfocal. EXTREMITIES: Lower extremities without edema bilaterally. Pulses palpable in the lower extremities, both dorsalis pedis and posterior tibial of left, left toes dusky blue with reasonable motor and sensory Const: COMMON NORMALS: alert Resp: COMMON NORMALS: clear to auscultation bilaterally AUSCULTATION: clear to auscultation bilaterally Neuro: SENSORIUM/ORIENTATION: Yes alert Data : 10/01/21 19:10 10/01/21 19:10 A&P Assessment and plan (1) Critical limb ischemia of left lower extremity: As defined above patient underwent revascularization of the left leg. Continue aspirin statin Plavix. Status: Acute (2) History of [place] (myocardial infarction): Patient underwent balloon angioplasty and drug-eluting stent placement of mid to distal RCA and proximal ramus intermedius. Continue aspirin statin Plavix optimize medicine. Status: Acute (3) CHF (congestive heart failure): Appear to be stable. Continue to monitor Status: Acute Qualifiers: Heart failure type: systolic Heart failure chronicity: acute on chronic Qualified Code(s): I50.23 - Acute on chronic systolic (congestive) heart failure Attestations Medical Necessity Statement*: Patient require continuation hospitalization for work-up and care. 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
--- NOTE | 2021-10-02 19:37 | PC.NURSE ---
received from cardiac analyst microbiology lab at 1120.report received.pt is sleepy but easily awakened.right femoral arterial line intact to pressurized system.right groin drsg is dry and intact.no hematoma noted.right leg is warm to touch and with brisk capillary refill.left foot with toes bluish in color.cool to toucch.dopplerable dp pulse and palpable pt pulse.instructed pt in activity restrictions s/p femoral artery procedure.instructed pt to notify staff for any bleeding,pain,numbness...or for any concerns at all.at 1205 pt c/o severe pain to left calf area.calf is firm to touch.pulses to lle unchanged.dr bo notified and here to assess pt.he instructed me to semi-firmly wrap calf with agnes bandage.circumference measured 40.5 cm and did not change through shift.calf noted to soften to touch as shift progressed.right femoral sheath pulled at 1820,once ptt reached < 45sec.manual pressure held x 20 min.pt tolerated procedure well.no hematoma formation noted.vss.right leg remained warm to touch and with brisk capillary refill.site dressed with 2x2 guaze and secured with biocclusive drsg.instructed in activity restrictions s/p femoral artery sheath pull...and instructed to notify staff for any bleeding,pain,numbness..or for any concerns at all.pt verb understanding of instructions.no change in left foot pedal pulses noted at change of shift.pt cont to c/o discomfort in left calf but not as severe as originally..slept most of afternnoon....calf remains softer to touch
[2021-10-03] VITALS (53 sets, daily range): BP systolic 99–133; BP diastolic 62–103; PULSE 71–80; RESP 13–28; TEMP 36.7; O2SAT 90–98
--- NOTE | 2021-10-03 01:37 | PC.NURSE ---
Patient with no complaints of pain. She states that it hurts only when I move it. Pulses positive and able to hear with doppler. Will continue to monitor.
[2021-10-03 03:54] LABS: Basophils % 0.1 %; Hematocrit 38.3 % (37.0-47.0); Hemoglobin 11.6 g/dL (11.5-15.3); Lymphocytes # 1.7 10^3/uL (0.8-4.8); Lymphocytes % 11.9 %; Mean Corpuscular HGB Conc 30.3 g/dL (30.0-36.0); Mean Corpuscular Hemoglobin 31.4 pg (28.0-34.0); Mean Corpuscular Volume 103.8 fl (81-99); Mean Platelet Volume 10.3 fL (7.4-10.4); Neutrophils # 11.19 10^3/uL (1.8-7.7); Neutrophils % 80.5 %; Nucleated Red Blood Cells % 0 %; Platelet Count 273 10^3/cmm (130-400); Red Blood Count 3.69 10^6/uL (4.1-5.3); Red Cell Distribution Width 12.9 % (12.1-15.1); White Blood Count 13.9 10^3/uL (4.0-10.0)
[2021-10-03 04:22] LABS: Anion Gap 15.5 (5-19); Blood Urea Nitrogen 5 mg/dL (8-23); Calcium 8.4 mg/dL (8.5-10.5); Carbon Dioxide 23 mmol/L (22-29); Chloride 104 mmol/L (98-107); Creatinine Clr Calc Pharmacy 69.1863; Glucose 120 mg/dL (65-115); Osmolality Calculated 284 mOsm/kg (285-295); Potassium 4.5 mmol/L (3.5-5.1); Sodium 138 mmol/L (136-145)
--- NOTE | 2021-10-03 06:16 | PC.NURSE ---
Addendum entered by Candace De Anda RN 10/03/21 06:22: doppler dp pulse, palpable pt pulse. Will continue to monitor. Original Note: Patient slept most of night. No requests for pain medication. Up to commode for first time since surgery yesterday. Patient did well then requested to sit up in chair. Denies pain at this time.
--- NOTE | 2021-10-03 09:00 | P.DS_ITS ---
Discharge Providers Date of Admission: 10/01/21 17:15 Date of Discharge: October 03, 2021 Attending Provider at Admission: Elias Hirsch MD Attending Provider at Discharge: Elias Hirsch MD Primary Care Provider: Minda Bunch MD Diagnoses at Discharge Discharge Diagnosis (1) Critical limb ischemia of left lower extremity: Status: Resolved (2) History of [place] (myocardial infarction): (3) CHF (congestive heart failure): Status: Resolved Qualifiers: Heart failure chronicity: acute on chronic Heart failure type: systolic Qualified Code(s): I50.23 - Acute on chronic systolic (congestive) heart failure Reason for Visit Reason for Visit: CHF Hospital Course Hospital Course 71-year-old female who underwent left heart cath and peripheral angiogram for non-ST elevation [place] and critical limb ischemia underwent left heart cath noted to have occluded mid to distal RCA possibly was the culprit and high-grade lesion of proximal moderate to large size ramus intermedius. Both were treated with drug-eluting stents, first in ramus and second in RCA. Excellent angiographic result was achieved. Peripheral angiogram was performed for critical limb ischemia of left leg and gangrenous toes, she was noted to have high-grade lesion of her external iliac mid SFA and chronically occluded left anterior tibial artery. Anterior tibial artery was treated with balloon angioplasty with reasonable good result distally it is filled through peroneal vessel mid SFA was treated with balloon angioplasty while left external iliac vessel was treated with balloon angioplasty followed by covered stent. Excellent angiographic result with good pulses were achieved in the left foot at the end of the case patient has palpable anterior and posterior tibial pulse left foot appear to be warm and started showing good color. Over the next 2 days we optimize her medicine she did fine and being discharged home. She will be continuing on dual antiplatelet therapy including Plavix and aspirin for at least couple of years. Physical Exam Narrative: EXAM NARRATIVE: GENERAL: Patient is alert, awake and oriented x3. NECK: No jugular vein distension. HEENT: No cyanosis. No icterus. No pallor. HEART: Regular S1 and S2. No murmur, rub or gallop. LUNGS: Clear to auscultate bilaterally. ABDOMEN: Soft, nontender and nondistended. Positive bowel sounds. No guarding, rebound or tenderness. CENTRAL NERVOUS SYSTEM: Grossly nonfocal. EXTREMITIES: Lower extremities without edema bilaterally. Pulses palpable in the lower extremities, both dorsalis pedis and posterior tibial of left, left toes dusky blue with reasonable motor and sensory Const: COMMON NORMALS: alert Resp: COMMON NORMALS: clear to auscultation bilaterally AUSCULTATION: clear to auscultation bilaterally Neuro: SENSORIUM/ORIENTATION: Yes alert Discharge Data Data Completed and Pending: Completed Studies During Hospitalization Category Date Time Status CV. 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 request for service Routin e Exams 10/02/21 06:03 Taken Labs from last 24 hours 10/03/21 10/03/21 10/02/21 03:11 03:11 15:31 WBC 13.9 H RBC 3.69 L Hgb 11.6 Hct 38.3 MCV 103.8 H MCH 31.4 MCHC 30.3 RDW 12.9 Plt Count 273 MPV 10.3 Neut % (Auto) 80.5 Lymph % (Auto) 11.9 [place] % (Auto) 7.0 Eos % (Auto) 0.0 Baso % (Auto) 0.1 Neut # (Auto) 11.19 H Lymph # (Auto) 1.7 [place] # (Auto) 1.0 H Eos # (Auto) 0.0 Baso # (Auto) 0.0 Nucleated RBC % (a uto) 0 Nucleated RBCs # 0.0 APTT 27.0 D Sodium 138 Potassium 4.5 Chloride 104 Carbon Dioxide 23 Anion Gap 15.5 BUN 5 L Creatinine 0.6 GFR Calculation Not Reportable Glucose 120 H Calculated Osmolal ity 284 L Calcium 8.4 L 10/02/21 13:16 WBC RBC Hgb Hct MCV MCH MCHC RDW Plt Count MPV Neut % (Auto) Lymph % (Auto) [place] % (Auto) Eos % (Auto) Baso % (Auto) Neut # (Auto) Lymph # (Auto) [place] # (Auto) Eos # (Auto) Baso # (Auto) Nucleated RBC % (a uto) Nucleated RBCs # APTT 63.6 H Sodium Potassium Chloride Carbon Dioxide Anion Gap BUN Creatinine GFR Calculation Glucose Calculated Osmolal ity Calcium Vitals: Last Vital Signs Temp 98.0 F 10/03/21 07:30 Pulse 75 10/03/21 07:30 Resp 15 10/03/21 07:30 BP 99/66 10/03/21 07:30 Pulse Ox 90 10/03/21 07:30 Discharge Plan Discharge Patient Disposition: Home Condition: Stable Prescriptions: New aspirin 81 mg Tablet,Delayed Release (Dr/Ec) 81 mg PO DAILY Qty: 90 RF: 4 metoprolol succinate 25 mg tablet extended release 24 hr 12.5 mg PO DAILY Qty: 30 RF: 4 atorvastatin 40 mg tablet 40 mg PO DAILY Qty: 30 RF: 4 Continued diazepam [Valium] 5 mg tablet 5 mg PO BID PRN (Reason: Anxiety) RF: 0 fentanyl 12 mcg/hr patch 72 hour 1 patch transdermal Q72H RF: 0 Plavix 75 mg tablet 75 mg PO DAILY Qty: 90 RF: 4 Discharge Orders: Discharge Order (Routine); Ordered 10/03/21 Ordered By: Elias Hirsch Referrals: Minda Bunch MD [Primary Care Provider] - 10/10/21 10:30 am (You have a hospital followup with Finesse Owens (Dr. Bunch is totally booked) on October 10 at 10:30am) Elias Hirsch MD [Physician] - 11/05/21 1:15 pm Patricia March FNP [Nurse Practitioner] - 10/10/21 2:00 pm () Discharge Diet: Cardiac Patient Instructions: Metoprolol (By mouth) (Lopressor, Toprol XL), Aspirin (By mouth), Atorvastatin (By mouth) (Lipitor), Coronary Angioplasty (DC), Peripheral Vascular Stent Placement (DC), Peripheral Vascular Angioplasty (DC), Opioid S afety Activity Restrictions/Additional Instructions: Follow-up with Ms. Patricia March in 7 days. Follow-up with Dr. Minda Morales in 2 weeks. Follow-up with Dr. Hirsch in 4 weeks Discharge Attestations Time Spent in Discharge Care*: greater than 30 min Specific Discharge Activities: educating patient and educating and/or supporting family/caregiver Quality Metrics Clinical Quality Measures During this hospital stay, did patient experience: None Coding Level of Care Code Established Pt Acute Chg FW DC note Patient Type Established History Detailed Exam Detailed Medical Decision Making Moderate Complexity Diagnoses Critical limb ischemia of left lower extremity I70.222 History of [place] (myocardial infarction) I25.2 CHF (congestive heart failure) I50.23 Heart failure chronicity: acute on chronic Heart failure type: systolic
[2021-10-03] MEDS: aspirin 81 mg EC Tablet PO (09:06)
[2021-10-03] MEDS: clopidogrel 75 mg Tablet PO (09:06)
--- NOTE | 2021-10-03 11:14 | PC.NURSE ---
Discharge instructions provided to patient. Medications were faxed to pharmacy. Patient has no questions or concerns. Vital signs are stable. Incision site on right groin is clean and absent of any presence of hematoma.Awaiting arrival of family for discharge.
--- NOTE | 2021-10-03 11:55 | PC.NURSE ---
Patient left facility with daughter. VS are stable upon departure.
== END 2021-10-03 12:04 | disposition home or self-care (01) | DRG 246 ==
PROVIDERS: Admitting Provider Internal Medicine Cardiovascular Disease; PCP Internal Medicine; Visit Provider Internal Medicine Cardiovascular Disease
PROC: 027136Z Dilation of Coronary Artery, Two Arteries with Three Drug-eluting Intraluminal Devices, Percutaneous Approach (ICD-10-PCS; principal; 2021-10-02 07:00)
PROC: 027136Z Dilation of Coronary Artery, Two Arteries with Three Drug-eluting Intraluminal Devices, Percutaneous Approach (ICD-10-PCS; 2021-10-02 07:00)
PROC: 027136Z Dilation of Coronary Artery, Two Arteries with Three Drug-eluting Intraluminal Devices, Percutaneous Approach (ICD-10-PCS; 2021-10-02 07:00)
PROC: 027136Z Dilation of Coronary Artery, Two Arteries with Three Drug-eluting Intraluminal Devices, Percutaneous Approach (ICD-10-PCS; 2021-10-02 07:00)
DX: I25.10 Atherosclerotic heart disease of native coronary artery without angina pectoris (principal); I50.23 Acute on chronic systolic (congestive) heart failure; I70.262 Atherosclerosis of native arteries of extremities with gangrene, left leg; Z68.41 Body mass index [BMI] 40.0-44.9, adult; F17.210 Nicotine dependence, cigarettes, uncomplicated; E66.9 Obesity, unspecified; I25.2 Old myocardial infarction; Z79.02 Long term (current) use of antithrombotics/antiplatelets
CPT/HCPCS: 36415; 37221; 75625; 75716; 80048; 85025; 85347; 85610; 85730; 93454; C1725; C1760; C1769; C1874; C1887; C1894; C8929; C9600; C9601; J1170; J1200; J1644; J2250; J2405; J2930; J3010; J3246; J3490; J7030; Q9956; Q9967

== ENCOUNTER → 2021-10-21 15:54 | Outpatient (BNVA) | payer MEDICARE, SELFPAY | PROVIDERS: PCP Internal Medicine; Visit Provider Nurse Practitioner Family | DX: I50.9 Heart failure, unspecified (principal); I73.9 Peripheral vascular disease, unspecified | CPT/HCPCS: 80048 ==

== ENCOUNTER 2021-11-04 13:45 | Outpatient (CLI) | payer MEDICARE, SELFPAY | END 2021-11-04 13:46 | disposition home or self-care (01) | LOC: WOUND 13:46 | PROVIDERS: PCP Internal Medicine; Visit Provider Thoracic Surgery (Cardiothoracic Vascular Surgery) | DX: I77.6 Arteritis, unspecified (principal); L97.529 Non-pressure chronic ulcer of other part of left foot with unspecified severity; Z87.891 Personal history of nicotine dependence | CPT/HCPCS: 99214 ==

== ENCOUNTER 2021-11-11 14:09 | Outpatient (CLI) | payer MEDICARE, SELFPAY | END 2021-11-11 14:10 | disposition home or self-care (01) | LOC: WOUND 14:10 | PROVIDERS: PCP Internal Medicine; Visit Provider Emergency Medicine | DX: I96 Gangrene, not elsewhere classified (principal); L97.529 Non-pressure chronic ulcer of other part of left foot with unspecified severity; Z87.891 Personal history of nicotine dependence | CPT/HCPCS: 99212 ==

== ENCOUNTER 2021-11-27 13:01 | Outpatient (CLI) | payer MEDICARE, SELFPAY | END 2021-11-27 13:02 | disposition home or self-care (01) | LOC: WOUND 13:02 | PROVIDERS: PCP Internal Medicine; Visit Provider Thoracic Surgery (Cardiothoracic Vascular Surgery) | DX: I70.269 Atherosclerosis of native arteries of extremities with gangrene, unspecified extremity (principal); L97.529 Non-pressure chronic ulcer of other part of left foot with unspecified severity; Z87.891 Personal history of nicotine dependence | CPT/HCPCS: 99212 ==

== ENCOUNTER 2021-12-11 13:08 | Outpatient (CLI) | payer MEDICARE, SELFPAY | END 2021-12-11 13:09 | disposition home or self-care (01) | LOC: WOUND 13:09 | PROVIDERS: PCP Internal Medicine; Visit Provider Thoracic Surgery (Cardiothoracic Vascular Surgery) | DX: I96 Gangrene, not elsewhere classified (principal); Z87.891 Personal history of nicotine dependence; S91.105D Unspecified open wound of left lesser toe(s) without damage to nail, subsequent encounter; X58.XXXD Exposure to other specified factors, subsequent encounter | CPT/HCPCS: 99212 ==

== ENCOUNTER → 2021-12-25 13:08 | Outpatient (BNVA) | payer MEDICARE, SELFPAY | PROVIDERS: PCP Internal Medicine; Visit Provider Thoracic Surgery (Cardiothoracic Vascular Surgery) | DX: I96 Gangrene, not elsewhere classified (principal); L97.529 Non-pressure chronic ulcer of other part of left foot with unspecified severity; Z87.891 Personal history of nicotine dependence | CPT/HCPCS: 99212 ==

== ENCOUNTER → 2022-01-01 13:12 | Outpatient (BNVA) | payer MEDICARE, SELFPAY | PROVIDERS: PCP Internal Medicine; Visit Provider Thoracic Surgery (Cardiothoracic Vascular Surgery) | DX: I96 Gangrene, not elsewhere classified (principal); L97.529 Non-pressure chronic ulcer of other part of left foot with unspecified severity; Z87.891 Personal history of nicotine dependence | CPT/HCPCS: 11042; A6021 ==

== ENCOUNTER → 2022-01-08 08:22 | Outpatient (BNVA) | payer MEDICARE, SELFPAY | PROVIDERS: PCP Internal Medicine; Visit Provider Thoracic Surgery (Cardiothoracic Vascular Surgery) | DX: I96 Gangrene, not elsewhere classified (principal); L97.529 Non-pressure chronic ulcer of other part of left foot with unspecified severity; F17.210 Nicotine dependence, cigarettes, uncomplicated | CPT/HCPCS: 99212; 99213 ==

== ENCOUNTER → 2022-01-13 15:31 | Outpatient (BNVA) | payer MEDICARE, SELFPAY | PROVIDERS: PCP Internal Medicine; Visit Provider Thoracic Surgery (Cardiothoracic Vascular Surgery) | DX: I96 Gangrene, not elsewhere classified (principal); L97.528 Non-pressure chronic ulcer of other part of left foot with other specified severity; F17.210 Nicotine dependence, cigarettes, uncomplicated | CPT/HCPCS: 97597 ==

== ENCOUNTER → 2022-01-20 14:57 | Outpatient (BNVA) | payer MEDICARE, SELFPAY | PROVIDERS: PCP Internal Medicine; Visit Provider Thoracic Surgery (Cardiothoracic Vascular Surgery) | DX: I96 Gangrene, not elsewhere classified (principal); L97.521 Non-pressure chronic ulcer of other part of left foot limited to breakdown of skin; F17.210 Nicotine dependence, cigarettes, uncomplicated | CPT/HCPCS: 97597 ==

== ENCOUNTER → 2022-01-27 15:11 | Outpatient (BNVA) | payer MEDICARE, SELFPAY | PROVIDERS: PCP Internal Medicine; Visit Provider Thoracic Surgery (Cardiothoracic Vascular Surgery) | DX: I96 Gangrene, not elsewhere classified (principal); L97.511 Non-pressure chronic ulcer of other part of right foot limited to breakdown of skin; F17.210 Nicotine dependence, cigarettes, uncomplicated | CPT/HCPCS: 97597 ==

== ENCOUNTER → 2022-02-03 14:47 | Outpatient (BNVA) | payer MEDICARE, SELFPAY | PROVIDERS: PCP Internal Medicine; Visit Provider Thoracic Surgery (Cardiothoracic Vascular Surgery) | DX: I96 Gangrene, not elsewhere classified (principal); L97.511 Non-pressure chronic ulcer of other part of right foot limited to breakdown of skin; F17.210 Nicotine dependence, cigarettes, uncomplicated | CPT/HCPCS: 97597 ==

== ENCOUNTER → 2022-02-10 13:40 | Outpatient (BNVA) | payer MEDICARE, SELFPAY | PROVIDERS: PCP Internal Medicine; Visit Provider Thoracic Surgery (Cardiothoracic Vascular Surgery) | DX: I96 Gangrene, not elsewhere classified (principal); L97.521 Non-pressure chronic ulcer of other part of left foot limited to breakdown of skin | CPT/HCPCS: 97597 ==

== ENCOUNTER → 2022-02-17 14:04 | Outpatient (BNVA) | payer MEDICARE, SELFPAY | PROVIDERS: PCP Internal Medicine; Visit Provider Thoracic Surgery (Cardiothoracic Vascular Surgery) | DX: Z09 Encounter for follow-up examination after completed treatment for conditions other than malignant neoplasm (principal) | CPT/HCPCS: 99212 ==

== ENCOUNTER → 2022-03-19 10:43 | Outpatient (BNVA) | payer MEDICARE, SELFPAY | PROVIDERS: PCP Internal Medicine; Visit Provider Nurse Practitioner Family | DX: L97.521 Non-pressure chronic ulcer of other part of left foot limited to breakdown of skin (principal); F17.200 Nicotine dependence, unspecified, uncomplicated | CPT/HCPCS: 99213 ==

== ENCOUNTER → 2022-03-26 10:34 | Outpatient (BNVA) | payer MEDICARE, SELFPAY | PROVIDERS: PCP Internal Medicine; Visit Provider Thoracic Surgery (Cardiothoracic Vascular Surgery) | DX: L89.892 Pressure ulcer of other site, stage 2 (principal); I96 Gangrene, not elsewhere classified; Z09 Encounter for follow-up examination after completed treatment for conditions other than malignant neoplasm | CPT/HCPCS: 97597 ==

== ENCOUNTER 2022-03-27 16:54 | Outpatient (CLI) | payer MEDICARE, SELFPAY ==
--- NOTE | 2022-03-27 17:01 | XR_ITS ---
WS: [id number] XR foot LT min 3V* [id number] REASON FOR EXAM: I70.245 - Atherosclerosis of [place] arteries of left leg ... FINDINGS: Current images are somewhat overexposed making comparison difficult. There is concern for rarefaction and loss of cortical definition in the distal most portion of the tuft of the great toe lung compare d to the previous examination of 09/06/2021. No other interval change is noted. No other significant findings. XR/XR foot LT min 3V* [id number] IMPRESSION: Possible abnormality in the distal tuft of the distal phalanx of the great toe as above. If there is active inflammation/infection in the great toe this would be of concern for osteomyelitis. Clinical correlation to be made.
== END 2022-03-27 16:55 | disposition home or self-care (01) ==
LOC: RAD 16:58
PROVIDERS: PCP Internal Medicine; Visit Provider Thoracic Surgery (Cardiothoracic Vascular Surgery)
DX: I70.245 Atherosclerosis of native arteries of left leg with ulceration of other part of foot (principal)
CPT/HCPCS: 73630

== ENCOUNTER → 2022-04-02 10:55 | Outpatient (BNVA) | payer MEDICARE, SELFPAY | PROVIDERS: PCP Internal Medicine; Visit Provider Thoracic Surgery (Cardiothoracic Vascular Surgery) | DX: Z09 Encounter for follow-up examination after completed treatment for conditions other than malignant neoplasm (principal) | CPT/HCPCS: 99212; A6210 ==

== ENCOUNTER → 2022-04-16 10:46 | Outpatient (BNVA) | payer MEDICARE, SELFPAY | PROVIDERS: PCP Internal Medicine; Visit Provider Thoracic Surgery (Cardiothoracic Vascular Surgery) | DX: Z09 Encounter for follow-up examination after completed treatment for conditions other than malignant neoplasm (principal) | CPT/HCPCS: 99212 ==

== ENCOUNTER 2022-10-31 17:41 | Outpatient (CLI) | payer MEDICARE, SELFPAY ==
--- NOTE | 2022-10-31 17:49 | XRR_ITS ---
PROCEDURE INFORMATION: Exam: XR Left Foot Exam date and time: 10/31/2022 5:53 PM Age: 72 years old Clinical indication: Condition or disease; Other: Cellulitis TECHNIQUE: Imaging protocol: Radiologic exam of the Left foot. Views: 3 or more views. COMPARISON: CR XR foot LT min 3V* [id number] 03/27/2022 5:02 PM FINDINGS: Bones/joints: The tuft of the 3rd digit distal phalanx is eroded. No fracture. Joint spaces are aligned. Small osseous spurring of the calcaneus. Minor osteophytes between tarsal bones. Soft tissues: Soft tissue swelling. XR/XR foot LT min 3V* [id number] IMPRESSION: Third digit distal phalangeal tuft erosion suspicious for osteomyelitis or other cause of acro-osteolysis.
== END 2022-10-31 17:42 | disposition home or self-care (01) ==
LOC: RAD 17:44
PROVIDERS: PCP Internal Medicine; Visit Provider Nurse Practitioner Family
DX: L03.116 Cellulitis of left lower limb (principal); M79.672 Pain in left foot
CPT/HCPCS: 73630

== ENCOUNTER 2022-11-12 13:04 | Outpatient (CLI) | payer MEDICARE, SELFPAY ==
--- NOTE | 2022-11-12 13:18 | MR_ITS ---
WS: [id number] EXAMINATION: MR foot LT wo/w con [id number] ORDER DATE: 11/12/2022 1:47 PM COMPARISON: None. HISTORY: L FOOT CELLULITIS/L FOOT PAIN CONTRAST: Radiograph October 31, 2022 TECHNIQUE: Sagittal T1, sagittal STIR, coronal PD, coronal T2, axial T1, axial T2, and axial PD imagi ng with fat saturation technique. Post gadolinium imaging includes axial T1, coronal T1, and sagittal T1 with fat saturation technique. FINDINGS: Osteopenia. Ulceration 3rd distal phalanx. Soft tissue edema with enhancement involving the 3rd digit soft tissues. Findings compatible with cellulitis. No evidence of drainable abscess or flu id collection. Replacement the normal fatty bone marrow signal involving the 3rd distal and middle ph alanx compatible with osteomyelitis. This extends to the PIP joint. Bone marrow signal is better pres erved in the 3rd proximal phalanx. Normal metatarsals. Hammertoe deformities. MR/MR foot LT wo/w con [id number] IMPRESSION: Osteomyelitis involving the 3rd distal phalanx extending into the middle phalan x.Signal abnormality extends to the PIP joint. Normal bone marrow signal in the proximal phalanx.
[2022-11-12] MEDS: gadobenate dimeglumine 20 mL vial IV (14:47)
== END 2022-11-12 13:05 | disposition home or self-care (01) ==
PROVIDERS: PCP Internal Medicine; Visit Provider Internal Medicine
DX: L03.116 Cellulitis of left lower limb (principal); L08.9 Local infection of the skin and subcutaneous tissue, unspecified; M79.672 Pain in left foot
CPT/HCPCS: 73720; A9577

== ENCOUNTER → 2022-11-14 15:40 | Outpatient (BNVA) | payer MEDICARE, SELFPAY | PROVIDERS: PCP Internal Medicine; Visit Provider Podiatrist Foot & Ankle Surgery | DX: L97.524 Non-pressure chronic ulcer of other part of left foot with necrosis of bone (principal) | CPT/HCPCS: 11044; 87070; 87075; 87077; 87186; 87205; 99204 ==

== ENCOUNTER 2022-11-19 10:28 | Day surgery (SDC) | payer MEDICARE, SELFPAY ==
[2022-11-19 10:52] VITALS: BP 136/73; PULSE 59; RESP 16; TEMP 36.6; O2SAT 95
--- NOTE | 2022-11-19 11:06 | P.ANESASSM_ITS ---
Pre-Anesthetic Assessment Height/Weight: Height 1.57 m Weight 48.081 kg Preop Diagnosis: Osteomyelitis left third toe Operation Date: 11/19/22 12:00 Proposed Procedures p ?Left third toe amputation at interphalangeal joint 02095,L97.523(Left) - Larry Cheatham DPM Familial anesthetic complications: None Was Beta Marii taken within 24 hours: N/A Was Clonidine taken within 24 hours: N/A Last intake: > 8 hrs Social No alcohol and No tobacco former smoker Exam alert, oriented x 3, clear to auscultation bilaterally and regular rate & rhythm Airway Mallampati: Class III Dentition: false (refuses to remove) CV/HEM Coronary Artery Disease (CAT 11/19), Hypertension, Myocardial Infarction and Peripheral Vascular Disease Anesthetic Plan ASA status: 3 Anesthesia: MAC Risk of > 500 ml blood loss (7ml/kg in children): No Medications/Allergies Home Medications Medication Instructions Recorded Confirmed Last Taken Type diazepam 5 mg tablet (Valium) 5 mg PO BID PRN Anxiety 10/23/20 11/19/22 11/18/22 History aspirin 81 mg tablet,delayed 81 mg PO DAILY #90 tabs 10/03/21 11/19/22 11/18/22 Rx release clopidogrel 75 mg tablet (Plavix) 75 mg PO DAILY #90 tabs 10/03/21 11/19/22 11/18/22 Rx Allergies Allergy/AdvReac Type Severity Reaction Status Date / Time Beef Containing Products Allergy Severe hives, Verified 11/18/22 11:50 itching and difficulty breathing erythromycin base Allergy Severe Hives Verified 11/18/22 11:50 hydrocodone [From Vicodin] Allergy Severe difficulty Verified 11/18/22 11:50 breathing Penicillins Allergy Severe anaphylaxis Verified 11/18/22 11:50 and hives Iodine and Iodide Containing Allergy Unknown Unknown Verified 11/18/22 11:50 Produc shellfish derived Allergy Unknown Unknown Verified 11/18/22 11:50 [facility] Anesthesia Medical History CHF (congestive heart failure) History of [place] (myocardial infarction) Family History Sister Cancer Colorectal CA Social History Smoking and tobacco status: current every day smoker cigarettes Packs smoked per day: 1 Years cigarettes smoked: 55 Data Anesthesia Cardiac Studies: Echocardiogram 10/02/21
[2022-11-19] MEDS: sodium chloride 0.9% 1,000 ML 30 ML IV (11:38)
[2022-11-19] MEDS: midazolam 1 mg/mL INJ 2 mL 2 MG IVP (11:40)
[2022-11-19] MEDS: clindamycin 600 MG/50 ML PREMIX 100 MG IV (11:45)
--- NOTE | 2022-11-19 11:46 | P.OP_ITS ---
Operative Report Date of procedure: November 19, 2022 Pre-op diagnosis: Preop Diagnosis Osteomyelitis left third toe Post-op diagnosis: Osteomyelitis left third toe distal phalanx Procedure done: Left third toe amputation at proximal interphalangeal joint. CPT code 89468 Implants: 4-0 nylon Specimens removed/disposition: None Pathology: Left distal third toe sent to pathology for permanent Surgeon: Larry Cheatham D.P.M. Directory Assistance Operator: Laurel Estimated blood loss: 5 8 IV fluids: None Urine output: None Complications: None Findings: Devitalized bone distal phalanx left third toe Brief History: Reviewed x-ray findings taken at today's visit shows bony destruction of the distal phalanx left third toe.? MRI also reviewed shows acute osteomyelitis left third toe distal phalanx.? Patient is requesting surgical amputation at least partial amputation of her left third toe stating that it is painful and she does not want the infection to ascend into her foot jeopardizing her foot.? We will schedule this for next week 11/19/2022, outpatient, partial amputation left third toe through proximal interphalangeal joint.? I reviewed at length with the patient, the risks, potential complications, benefits, alternatives, expectations, and typical outcomes associated with the surgery. The risks and potential complications were explained in detail, including but not limited to infection, wound dehiscence or soft tissue complications, bleeding and hematoma, chronic edema, neuritis or nerve damage producing numbness or chronic pain, CRPS, failure to relieve pain or worsening pain, thick / painful / unsightly scar, limited motion / stiffness, malposition, delayed union, malunion, or nonunion, fracture, reaction to implants, anesthetic complications, venous thromboembolism, and deformity recurrence.? I discussed the notion of no regrets with the patient as it pertains to complications and outcomes. The patient seemed to understand the nature of the proposed care and required convalescence. They asked appropriate questions, answered to their satisfaction. They are aware no guarantees can be made as to a satisfactory outcome and they understand there may be other possible unforeseen complications or outcomes not listed here that will be treated accordingly if they arise. There were no writ ten or implied guarantees given to the patient. They gave informed consent to proceed. Procedure: Under mild sedation the patient was brought to the operating room and remained on the gurney in supine position. A timeout was performed. Anesthesia was then administered by the anesthesia service. Local anesthesia was injected by myself consisting of 20 cc of one-to-one mixture 1% lidocaine and 0.5% Marcaine plain in a left third ray block fashion. Well-padded pneumatic tourniquet was applied to the left ankle. The left lower extremity was scrubbed, prepped and draped utilizing normal aseptic technique. Attention was directed to the left third toe where a sinus tract probing directly to the distal phalanx with devitalized bone was appreciated. A fishmouth incision was performed full-thickness down to bone encompassing the proximal interphalangeal joint and the left third toe was amputated sharply through disarticulation of the proximal interphalangeal joint and passed from operative field this was sent to pathology for permanent. The head of the proximal phalanx was identified and appreciated to be of normal density and color without any signs of necrosis. Tissue was also viable at the margins of amputation. The incision was irrigated with copious amounts of sterile saline solution. Single layer closure 4-0 nylon was performed with tissues well approximated without tension. The incision was dressed with Adaptic, sterile 4 x 4, Kerlix and Oscar wrap and a postop shoe was applied to the left foot. Tourniquet was then deflated and a prompt hyperemic response was noted to the distal digits of the left foot. Patient tolerated the procedure and anesthesia well and was transferred to the PACU with vital signs stable and vascular status intact. Following a period of postop monitoring she will be discharged home is to remain partial weightbearing may heel touch only for transfers to the left foot. She is to elevate her left foot while resting. She is to keep her postoperative/surgical dressing clean, dry and intact until her follow-up visit in podiatry clinic 11/24/2022 at 2:00 PM. She was provided my cell phone number to contact with any postoperative questions or concerns.
--- NOTE | 2022-11-19 11:46 | W.PM.OPSUD ---
Surgery/Procedure H&P Update DATE OF PROCEDURE: November 19, 2022 DATE H&P PERFORMED: 11/14/22 CHANGES TO PREVIOUS DOCUMENTATION: None PREOP DIAGNOSIS: Osteomyelitis left third toe PLANNED PROCEDURE: Operation Date: 11/19/22 12:00 Proposed Procedures p ?Left third toe amputation at interphalangeal joint 43240,I10.524(Left) - Larry Cheatham DPM
[2022-11-19] MEDS: lidocaine 2% INJ 20 mL (11:52)
[2022-11-19 11:57] LABS: Basophils # 0.1 10^3/uL (0.0-0.1); Basophils % 0.6 %; Eosinophils # 0.2 10^3/uL (0.0-0.8); Eosinophils % 2.2 %; Hematocrit 52.3 % (37.0-47.0); Hemoglobin 16.5 g/dL (11.5-15.3); Lymphocytes # 3.4 10^3/uL (0.8-4.8); Lymphocytes % 35.9 %; Mean Corpuscular HGB Conc 31.5 g/dL (30.0-36.0); Mean Corpuscular Hemoglobin 32.3 pg (28.0-34.0); Mean Corpuscular Volume 102.3 fl (81-99); Mean Platelet Volume 10.1 fL (7.4-10.4); Monocytes # 0.6 10^3/uL (0.2-0.9); Monocytes % 6.6 %; Neutrophils % 54.5 %; Nucleated Red Blood Cells % 0 %; Platelet Count 250 10^3/cmm (130-400); Red Blood Count 5.11 10^6/uL (4.1-5.3); Red Cell Distribution Width 13.2 % (12.1-15.1); White Blood Count 9.6 10^3/uL (4.0-10.0)
[2022-11-19 12:15] VITALS: BP 120/71; PULSE 56; RESP 16; O2SAT 95
[2022-11-19 12:20] VITALS: BP 134/76; PULSE 47; RESP 16; O2SAT 92
[2022-11-19 12:23] VITALS: BP 136/75; PULSE 48; RESP 15; TEMP 36.1; O2SAT 93
--- NOTE | 2022-11-19 12:29 | XRR_ITS ---
PROCEDURE INFORMATION: Exam: XR Left Foot Exam date and time: 11/19/2022 1:03 PM Age: 72 years old Clinical indication: Device placement; Other: Post op; Prior surgery; Surgery date: Post-operative (0-2 days) TECHNIQUE: Imaging protocol: Radiologic exam of the left foot. Views: 1 or 2 views. COMPARISON: MR foot LT wo/w con [id number] 11/12/2022 2:05 PM FINDINGS: Bones/joints: Amputation of the 3rd middle and distal phalanges without acute appearing bony abnormality. Small calcified heel spur. Mild 1st metatarsophalangeal joint osteoarthritis. Soft tissues: Normal. XR/XR foot LT 2V [id number] IMPRESSION: 1. Amputation of the 3rd middle and distal phalanges without acute appearing bony abnormality. 2. Small calcified heel spur. 3. Mild 1st metatarsophalangeal joint osteoarthritis.
[2022-11-19 12:31] VITALS: BP 137/73; PULSE 48; RESP 16; TEMP 36.1; O2SAT 94
[2022-11-19 12:46] VITALS: BP 114/79; PULSE 43; RESP 16; O2SAT 94
--- NOTE | 2022-11-19 13:55 | ANE.PACU2 ---
Inpatient post-anesthesia follow up: Airway intact: Yes Vital signs: Temperature 97 F Pulse Rate 43 Respiratory Rate 16 Blood Pressure 114/79 Pulse Oximetry 94 Oxygen Delivery Me thod Room Air Oxygen Flow Rate Fraction of Inspir ed Oxygen Hydration adequate: Yes Nausea and vomiting: No Pain level: 1 Mental status: Baseline
== END 2022-11-19 13:20 | disposition home or self-care (01) ==
PROVIDERS: Anesthesiology; PCP Internal Medicine; Visit Provider Podiatrist Foot & Ankle Surgery
PROC: (CPT 28825; principal; 2022-11-19 12:00)
DX: M86.8X7 Other osteomyelitis, ankle and foot (principal); I10 Essential (primary) hypertension; I25.2 Old myocardial infarction; I73.9 Peripheral vascular disease, unspecified; Z79.82 Long term (current) use of aspirin; F17.210 Nicotine dependence, cigarettes, uncomplicated
CPT/HCPCS: 28825; 36415; 73620; 85025; 88305; 88311; J2250; J2704; J3010; J3490; J7030

== ENCOUNTER → 2022-11-24 14:06 | Outpatient (BNVA) | payer MEDICARE, SELFPAY | PROVIDERS: PCP Internal Medicine; Visit Provider Podiatrist Foot & Ankle Surgery | DX: Z89.422 Acquired absence of other left toe(s) (principal); L97.524 Non-pressure chronic ulcer of other part of left foot with necrosis of bone | CPT/HCPCS: 99213 ==

== ENCOUNTER → 2022-12-04 15:03 | Outpatient (BNVA) | payer MEDICARE, SELFPAY | PROVIDERS: PCP Internal Medicine; Visit Provider Podiatrist Foot & Ankle Surgery | DX: Z47.81 Encounter for orthopedic aftercare following surgical amputation (principal); Z89.422 Acquired absence of other left toe(s) | CPT/HCPCS: 99213 ==

== ENCOUNTER → 2023-01-01 14:51 | Outpatient (BNVA) | payer MEDICARE, SELFPAY | PROVIDERS: PCP Internal Medicine; Visit Provider Podiatrist Foot & Ankle Surgery | DX: Z98.890 Other specified postprocedural states (principal); L97.524 Non-pressure chronic ulcer of other part of left foot with necrosis of bone; Z89.422 Acquired absence of other left toe(s) | CPT/HCPCS: 99213 ==

== ENCOUNTER 2024-03-03 13:29 | Outpatient (CLI) | payer MEDICARE, OTHER, SELFPAY ==
--- NOTE | 2024-03-03 14:07 | XR_ITS ---
WS: [id number] XR chest 2V* [id number] REASON FOR EXAM: COUGH/TOBACCO ABUSE,CONTINUOUS FINDINGS: Lobular mass 3 x 6 cm involving the right hilar region. Likely this represents a primary central lung carcinoma and adenopathy. There is blunting of the right costophrenic angle and flattening of the hemidiaphragmatic contour whi ch may indicate the presence of a right pleural effusion. 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 Probable right pleural effusion.
== END 2024-03-03 13:30 | disposition home or self-care (01) ==
PROVIDERS: PCP Internal Medicine; Visit Provider Internal Medicine
DX: R05.8 Other specified cough (principal); F17.200 Nicotine dependence, unspecified, uncomplicated; R91.8 Other nonspecific abnormal finding of lung field
CPT/HCPCS: 71046